=== PATIENT | female | born 1950 | race Caucasian/White ===

== ENCOUNTER → 2018-07-08 08:11 | Outpatient (CLI) | payer OTHER, MEDICARE, SELFPAY | PROVIDERS: Family Provider Family Medicine; PCP Family Medicine; Visit Provider Obstetrics & Gynecology | DX: Z12.31 Encounter for screening mammogram for malignant neoplasm of breast (principal) | CPT/HCPCS: 77063; 77067 ==

== ENCOUNTER → 2018-09-06 13:29 | Outpatient (CLI) | payer MEDICARE, SELFPAY ==
[2018-09-06 15:57] LABS: Absolute Lymphocyte Count 1.56 X10^3/ul (0.83-4.51); Absolute Neutrophil Count 3.4 X10^3/uL (2.0-7.7); Basophil# 0.03 X10^3/uL; Basophil% 0.5 % (0-1); Eosinophil# 0.12 X10^3/uL; Eosinophils% 2.1 % (0-5); Hemoglobin 11.2 g/dl (12.0-15.0); Lymphocyte # 1.56 X10^3/ul (4.0); Lymphocyte % 27.7 % (19-41); Mean Corpuscular Hgb 32.9 pg (27.0-32.0); Mean Corpuscular Volume 102.9 fL (81-99); Mean Platelet Vol. 9.5 fl (6.2-12.0); Monocyte# 0.57 X10^3/uL; Monocyte% 10.1 % (0-10); Neutrophil # 3.35 X10^3/uL (2.7-7.7); Neutrophil % 59.6 % (47-70); Platelet Count 476 K/mm3 (150-450); RBC Distribution Width SD 52.3 fl (35.1-43.9); White Blood Count 5.6 K/mm3 (4.4-11.0)
[2018-09-06 16:05] LABS: POSITIVE COUNT NO; POSITIVE DIFFERENTIAL NO; POSITIVE MORPHOLOGY NO
[2018-09-06 16:28] LABS: ALB/GLOB Ratio 0.9 RATIO (0.9-2.4); AST(SGOT) 22 U/L (15-37); Alanine Aminotransfer ALT/SGPT 26 U/L (13-56); Albumin, Serum 3.8 g/dL (3.2-5.0); Alkaline Phosphatase 84 U/L (45-117); Anion Gap 8 (5-15); BUN 26 mg/dL (7-18); BUN/Creat Ratio 27.2 RATIO (10-20); Calcium,Total 9.4 mg/dL (8.5-10.1); Chloride 104 mmol/L (98-107); Creatinine, Serum 0.96 mg/dL (0.55-1.02); EST Glomerular Filtration Rate 62 mL/min (>60); Est Glom Filt Rate - Afr Amer 75 mL/min (>60); Globulin 4.1 g/dL (2.2-4.2); Glucose 74 mg/dL (74-106); Potassium 3.8 mmol/L (3.5-5.1); Protein, Total 7.9 g/dL (6.4-8.2); Sodium Level 141 mmol/L (136-145)
== END ==
PROVIDERS: Family Provider Family Medicine; PCP Family Medicine; Referring Provider Internal Medicine Rheumatology; Visit Provider Internal Medicine Rheumatology
DX: M06.4 Inflammatory polyarthropathy (principal); M17.0 Bilateral primary osteoarthritis of knee; M21.40 Flat foot [pes planus] (acquired), unspecified foot; F32.89 Other specified depressive episodes; I10 Essential (primary) hypertension; E11.9 Type 2 diabetes mellitus without complications; E03.9 Hypothyroidism, unspecified; E78.5 Hyperlipidemia, unspecified
CPT/HCPCS: 36415; 80053; 85025

== ENCOUNTER → 2018-09-30 09:46 | Outpatient (CLI) | payer MEDICARE, SELFPAY ==
--- NOTE | 2018-09-30 09:50 | RAD_ITS ---
STUDY: X-RAY - RIGHT KNEE REASON FOR EXAM: Female, 68 years old. Knee pain. TECHNIQUE: 2 view(s) of the knee. COMPARISON: None. FINDINGS: Normal visualized distal femur. Normal visualized proximal tibia and fibula. Normal proximal tibiofibular articulation. There is no demonstrated fracture. There is severe degenerative arthrosis of the medial femorotibial compartment with severe joint space narrowing. There is moderate degenerative arthrosis of the lateral femorotibial compartment with moderate joint space narrowing. There is moderate degenerative arthrosis of the patellofemoral articulation. There is a soft tissue prominence in the suprapatellar region suggesting a small volume joint effusion. The soft tissue structures are unremarkable. RAD/Knee 1 or 2 Views IMPRESSION: Limited 2 view study of the knee shows small effusion, degenerative changes, and no acute fracture or dislocation. Electronically Signed: Jono Mao MD at 21:07 EST , Service support ,
--- NOTE | 2018-09-30 10:10 | RAD_ITS ---
STUDY: X-RAY - LEFT KNEE REASON FOR EXAM: Female, 68 years old. Knee pain. TECHNIQUE: 2 view(s) of the knee. COMPARISON: None. FINDINGS: Normal visualized distal femur. Normal visualized proximal tibia and fibula. Normal proximal tibiofibular articulation. There is no demonstrated fracture. Normal medial femorotibial compartment. There is moderate degenerative arthrosis of the lateral femorotibial compartment with moderate joint space narrowing. There is moderate degenerative arthrosis of the patellofemoral articulation. There is a soft tissue prominence in the suprapatellar region suggesting a small volume joint effusion. The soft tissue structures are unremarkable. RAD/Knee 1 or 2 Views IMPRESSION: Limited 2 view study of the knee shows small effusion, degenerative changes, and no acute fracture or dislocation. Electronically Signed: Jono Mao MD at 21:06 EST , Service support ,
== END ==
PROVIDERS: Family Provider Family Medicine; PCP Family Medicine; Referring Provider Anesthesiology Pain Medicine; Visit Provider Anesthesiology Pain Medicine
DX: M17.0 Bilateral primary osteoarthritis of knee (principal)
CPT/HCPCS: 73560

== ENCOUNTER → 2018-12-18 16:23 | Outpatient (CLI) | payer MEDICARE, SELFPAY ==
[2018-12-18 17:58] LABS: Absolute Lymphocyte Count 0.95 X10^3/ul (0.83-4.51); Absolute Neutrophil Count 6.7 X10^3/uL (2.0-7.7); Basophil# 0.02 X10^3/uL; Basophil% 0.2 % (0-1); Eosinophil# 0.01 X10^3/uL; Eosinophils% 0.1 % (0-5); Hematocrit 38.2 % (37-47); Hemoglobin 12.4 g/dl (12.0-15.0); Lymphocyte # 0.95 X10^3/ul (4.0); Lymphocyte % 11.6 % (19-41); Mean Corp Hgb Conc 32.5 g/gl (32-36); Mean Corpuscular Hgb 31.9 pg (27.0-32.0); Mean Corpuscular Volume 98.2 fL (81-99); Mean Platelet Vol. 9.8 fl (6.2-12.0); Monocyte# 0.49 X10^3/uL; Neutrophil % 81.9 % (47-70); Platelet Count 422 K/mm3 (150-450); RBC Distribution Width CV 12.4 % (11.6-14.6); RBC Distribution Width SD 44.1 fl (35.1-43.9); Red Blood Count 3.89 M/mm3 (4.2-5.4); White Blood Count 8.2 K/mm3 (4.4-11.0)
[2018-12-18 18:01] LABS: POSITIVE COUNT NO; POSITIVE DIFFERENTIAL NO; POSITIVE MORPHOLOGY NO
[2018-12-18 18:26] LABS: Ferritin 80 ng/mL (8-252); Free T3 1.8 pg/mL (2.18-3.98); Iron 82 ug/dL (50-170); T4 Free Direct 0.91 ng/dL (0.76-1.46); Thyroid Stim Hormone (TSH) 0.82 uIU/mL (0.358-3.74)
[2018-12-18 18:44] LABS: Vitamin B12 362 pg/mL (211-911)
--- OUTSIDE RECORDS SUMMARY | 2019-02-19 18:48 | XMS RPT_ITS ---
:1950 Author Organization OHIP Support Name Relationship Address Phone JOURDAN VALDEZ Unavailable [address] + [place] [address] R Unavailable Unavailable Unavailable JOURDAN VALDEZ Unavailable [address] Unavailable [place], [place] [phone] JC HUERTAS Unavailable [phone] WORK + NOT GIVEN Unavailable Unavailable Unavailable JOSÉ MIGUELJOURDAN WALKER Unavailable [address] Unavailable [place], [place] [phone] BRODY HUERTASDY Unavailable [phone] WORK + NOT GIVEN Unavailable Unavailable Unavailable JOURDAN VALDEZ Unavailable [address] + [place] [address] R Unavailable Unavailable Unavailable JOSÉ MIGUELJOURDAN Unavailable [address] + [place] [address] R Unavailable Unavailable Unavailable JOURDAN VALDEZ Unavailable [address] + [place] [address] R Unavailable Unavailable Unavailable JOURDAN VALDEZ Unavailable [address] Un[place] [phone] JC HUERTAS Unavailable [phone] WORK + NOT GIVEN Unavailable Unavailable Unavailable JOURDAN VALDEZ Unavailable [address] Un[place] [id number] BRODY HUERTASDY Unavailable [phone] WORK + NOT GIVEN Unavailable Unavailable Unavailable JOURDAN VALDEZ Unavailable [address] Un[place] [phone] BRODY HUERTASDY Unavailable [phone] WORK + NOT GIVEN Unavailable Unavailable Unavailable JOURDAN VALDEZ Unavailable [address] + [place] [address] R Unavailable Unavailable Unavailable JOURDAN VALDEZ Unavailable [address] + [place] [address] R Unavailable Unavailable Unavailable JOURDAN VALDEZ Unavailable [address] Un[place], [place] [phone] JC HUERTAS Unavailable [phone] WORK + NOT GIVEN Unavailable Unavailable Unavailable Care Team Providers Name Role Phone Elif Davenporta Attending Unavailable Malys, Lisseth Primary Care Unavailable Isis Gloria Attending Unavailable Malys, Lisseth Referring Unavailable Malys, Lisseth Primary Care Unavailable Annmarie Leon Attending Unavailable Isis Gloria Attending Unavailable Isis Gloria Referring Unavailable Malys, Lisseth Primary Care Unavailable Lázaro Galvan Attending Unavailable Lázaor Galvan Referring Unavailable Malys, Lisseth Primary Care Unavailable Beverly Hernandez Attending Unavailable Beverly Hernandez Referring Unavailable Malys, Lisseth Primary Care Unavailable LÁZARO GALVAN MD Admitting Unavailable LÁZARO GALVAN MD Attending Unavailable LÁZARO GALVAN MD Primary Care Unavailable LÁZARO GALVAN MD Admitting Unavailable LÁZARO GALVAN MD Attending Unavailable MALYS, LISSETH D.O Referring Unavailable LÁZARO GALVAN MD Primary Care Unavailable ROBERTOYS, LISSETH D.O Consulting Unavailable PROVIDER, UNKNOWN Consulting Unavailable ASTRID HERR DR Admitting Unavailable ASTRID HERR DR Attending Unavailable ASTRID HERR DR Primary Care Unavailable MALYS, LISSETH D.O Consulting Unavailable PROVIDER, UNKNOWN Consulting Unavailable MALYS, LISSETH D.O Admitting Unavailable MALYS, LISSETH D.O Attending Unavailable MALYS, LISSETH D.O Primary Care Unavailable MALYS, LISSETH D.O Consulting Unavailable PROVIDER, UNKNOWN Consulting Unavailable MALYS, LISSETH D.O Admitting Unavailable MALYS, LISSETH D.O Attending Unavailable MALYS, LISSETH D.O Primary Care Unavailable MALYS, LISSETH D.O Consulting Unavailable PROVIDER, UNKNOWN Consulting Unavailable LÁZARO GALVAN MD Admitting Unavailable LÁZARO GALVAN MD Attending Unavailable LÁZARO GALVAN MD Primary Care Unavailable MALYS, LISSETH D.O Consulting Unavailable PROVIDER, UNKNOWN Consulting Unavailable PROBLEMS PROBLEMS DATE TYPE CONDITION / CODE ATTENDING STATUS SOURCE 09/06/2018 Unknown 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 / [facility] M06.4(ICD-10) Hospital Repository 09/06/2018 Unknown M17.0 - Bilateral Vellanki, 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 [facility]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 / M17.0(ICD-10) Repository 09/06/2018 Unknown M15.9 - Vellanki, 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, [facility] unspecified / Hospital M15.9(ICD-10) Repository 09/06/2018 Unknown M21.40 - Flat foot Vellanki, Active [facility] [pes planus] [facility] (acquired), Hospital unspecified foot / Repository M21.40(ICD-10) 09/06/2018 Unknown F32.89 - Other Vellanki, Active [facility] specified depressive [facility] episodes / Hospital F32.89(ICD-10) Repository 09/06/2018 Unknown I10 - Essential Vellanki, Active [facility] (primary) [facility] hypertension / Hospital I10(ICD-10) Repository 09/06/2018 Unknown E11.9 - Type 2 Vellanki, Active [facility] diabetes mellitus [facility] without Hospital complications / Repository E11.9(ICD-10) 09/06/2018 Unknown E03.9 - Vellanki, Active [facility] Hypothyroidism, [facility] unspecified / Hospital E03.9(ICD-10) Repository 09/06/2018 Unknown E78.5 - Vellanki, Active [facility] Hyperlipidemia, [facility] unspecified / Hospital E78.5(ICD-10) Repository 08/19/2018 Unknown Z12.31 - Encounter Faizan, Active [facility] for screening [facility] mammogram for Hospital malignant neoplasm Repository of breast / Z12.31(ICD-10) 05/27/2018 Secondary Type 2 diabetes MALYS, LISSETH Active [facility] Diagnosis mellitus without [facility] complications / Hospital E119(ICD-10) Repository 05/27/2018 Secondary Hyperlipidemia, MALYS, LISSETH Active [facility] Diagnosis unspecified / [facility] E785(ICD-10) Hospital Repository 05/27/2018 Admitting Hypothyroidism, MALYS, LISSETH Active [facility] Diagnosis unspecified / [facility] E039(ICD-10) Hospital Repository 05/27/2018 Principle Hypothyroidism, MALYS, LISSETH Active [facility] Diagnosis unspecified / [facility] E039(ICD-10) Hospital Repository 05/27/2018 Secondary Essential (primary) LISSETH DAVENPORT Active [facility] Diagnosis hypertension / D.O [facility] I10(ICD-10) Hospital Repository 04/15/2018 Admitting Bilateral primary ASTRID HERR Active [facility] Diagnosis osteoarthritis of Jeannine knee / M170(ICD-10) Hospital Repository 04/15/2018 Principle Bilateral primary ASTRID HERR Active [facility] Diagnosis osteoarthritis of DR Paez knee / M170(ICD-10) Hospital Repository 03/20/2018 Admitting Essential (primary) VELLANKI, Active [facility] Diagnosis hypertension / LÁZARO [facility] I10(ICD-10) Hospital Repository 03/20/2018 Principle Essential (primary) VELLANKI, Active [facility] Diagnosis hypertension / LÁZARO [facility] I10(ICD-10) Hospital Repository 03/20/2018 Secondary Hypothyroidism, VELLANKI, Active [facility] Diagnosis unspecified / LÁZARO MD [facility] E039(ICD-10) Hospital Repository 12/26/2017 Admitting Inflammatory VELLANKI, Active [facility] Diagnosis polyarthropathy / LÁZARO [facility] M064(ICD-10) Hospital Repository 12/26/2017 Principle Inflammatory VELLANKI, Active [facility] Diagnosis polyarthropathy / LÁZARO [facility] M064(ICD-10) Hospital Repository 12/26/2017 Secondary Bilateral primary VELLANKI, Active [facility] Diagnosis osteoarthritis of LÁZARO NICHOLS [facility] knee / M170(ICD-10) Hospital Repository PROCEDURES PROCEDURES No Procedure Records FoundRESULTS RESULTS CBC W/DIFF, AUTOMATED Collected: 12/18/2018 Status: F Source: RAMY 4:26 PM [facility] HOSPITAL REPOSITORY TYPE CODE TESTS RESULT OUT OF RANGE REFERENCE UNITS LAB L100.1000 4.4-11.0 K/mm3 Normal WBC 8.2 LAB L100.1200 4.2-5.4 M/mm3 Low RBC 3.89 LAB L100.1300 12.0-15.0 g/dl Normal HGB 12.4 LAB L100.1400 37-47 % Normal HCT 38.2 LAB L100.1500 81-99 fL Normal MCV 98.2 LAB L100.1600 27.0-32.0 pg Normal MCH 31.9 LAB L100.1700 32-36 g/gl Normal MCHC 32.5 LAB L100.1810 11.6-14.6 % Normal RDW CV 12.4 LAB L100.1820 35.1-43.9 fl High RDW SD 44.1 LAB L100.1900 150-450 K/mm3 Normal PLT 422 LAB L100.2000 6.2-12.0 fl Normal MPV 9.8 LAB L100.2100 47-70 % High NEUT% 81.9 LAB L100.2200 19-41 % Low LY% 11.6 LAB L100.2300 0-10 % Normal MONO% 6.0 LAB L100.2400 0-5 % Normal EO% 0.1 LAB L100.2500 0-1 % Normal BASO% 0.2 LAB L100.2550 0.0-0.9 % Normal IM GRAN % 0.200 Result Comment: IG% - Immature Granulocytes (promyelocytes, myelocytes and metamyelocytes) > 1% indicates that a LEFT SHIFT is Present. LAB L100.2620 2.0-7.7 X10 3/uL Normal Absolute Neut 6.7 LAB L100.2720 0.83-4.51 X10 3/ul Normal Absolute Lymph 0.95 Performed By: #### L100.0100 #### [facility] [address] [place], [place], [id number] FREE T3 Collected: 12/18/2018 Status: F Source: [place] 4:[address] [facility] REPOSITORY TYPE CODE TESTS RESULT OUT OF RANGE REFERENCE UNITS LAB L501.15482 2.18-3.98 pg/mL Low FREE T3 1.8 Performed By: #### L501.72639, L501.9520, L503.6150, L503.6550, L506.0400 #### [facility] [address] [facility] [place], [place], [address] THYROID STIM HORMONE Collected: 12/18/2018 Status: F Source: [place]IL[place] (TSH) 4:[address] [facility] REPOSITORY TYPE CODE TESTS RESULT OUT OF RANGE REFERENCE UNITS LAB L501.9520 0.358-3.74 uIU/mL Normal TSH 0.82 Performed By: #### L501.59230, L501.9520, L503.6150, L503.6550, L506.0400 #### [facility] [address] [place], [address] IRON Collected: 12/18/2018 Status: F Source: [place] 4:[address] [facility] REPOSITORY TYPE CODE TESTS RESULT OUT OF RANGE REFERENCE UNITS LAB L503.6150 50-170 ug/dL Normal IRON 82 Performed By: #### L501.89191, L501.9520, L503.6150, L503.6550, L506.0400 #### [facility] [address] [place], [address] FERRITIN Collected: 12/18/2018 Status: F Source: [place] 4:[address] [facility] REPOSITORY TYPE CODE TESTS RESULT OUT OF RANGE REFERENCE UNITS LAB L503.6550 8-252 ng/mL Normal FERRITIN 80 Performed By: #### L501.91698, L501.9520, L503.6150, L503.6550, L506.0400 #### [facility] [place], [address] T4 FREE DIRECT Collected: 12/18/2018 Status: F Source: [place] 4:[address] [facility] REPOSITORY TYPE CODE TESTS RESULT OUT OF RANGE REFERENCE UNITS LAB L506.0400 0.76-1.46 ng/dL Normal T4 FREE 0.91 DIRECT Performed By: #### L501.40875, L501.9520, L503.6150, L503.6550, L506.0400 #### [facility] [place], [address] VITAMIN B12 Collected: 12/18/2018 Status: F Source: [place] 4:[address] [facility] REPOSITORY TYPE CODE TESTS RESULT OUT OF RANGE REFERENCE UNITS LAB L503.0105 211-911 pg/mL Normal Vitamin B12 362 Performed By: #### L503.0105 #### [facility] [address] [place], [address] CBC Collected: 12/07/2018 Status: F Source: DARRYL UNDERWOOD 11:00 AM [facility] REPOSITORY TYPE CODE TESTS RESULT OUT OF RANGE REFERENCE UNITS LAB CBC(LOINC) CBC Result Comment: CBC-COMPLETE BLOOD COUNT LAB WBC(LOINC) 4.5 - 10.8 x 10EE3/UL WBC 5.5 LAB RBC(LOINC) 4.10 - x 10EE6/UL 5.30 RBC Low 3.93 LAB HEMOGLOBIN(LOINC) 12.0 - g/dl 16.0 HEMOGLOBIN 13.0 LAB HEMATOCRIT(LOINC) 34.0 - % 46.0 HEMATOCRIT 38.3 LAB MCV(LOINC) 80 - 99 fl MCV 97 LAB MCH(LOINC) 27 - 33 pg MCH 33 LAB MCHC(LOINC) 32 - 36 X10 3 MCHC 34 LAB RDW/CV(LOINC) 12.0 - % 15.6 RDW/CV 12.4 LAB PLATELET(LOINC) 150 - 450 x10EE3/UL PLATELET 382 LAB MPV(LOINC) 6.6 - 10.5 fl MPV 8.6 Result Comment: AUTOMATED DIFFERENTIAL LAB NEUT %(LOINC) 46.0 - 76.0 % NEUT % 52.2 LAB LYMPH %(LOINC) 20.0 - 45.0 % LYMPH % 31.3 LAB MONOS %(LOINC) 0.0 - 10.0 % MONOS % High 11.4 LAB EO %(LOINC) 0.0 - 7.0 % EO % 4.2 LAB BASO %(LOINC) 0.0 - 2.0 % BASO % 0.9 LAB Lymph #(LOINC) 0.80 - 2.80 x10EE3/U L Lymph # 1.70 LAB Neut #(LOINC) 1.50 - 7.10 x10EE3/U L Neut # 2.90 LAB Dixon #(LOINC) 0.20 - 1.00 x10EE3/U L Dixon # 0.60 LAB EO #(LOINC) 0.00 - 0.50 x10EE3/U L EO # 0.20 LAB Baso #(LOINC) 0.00 - 0.10 x10EE3/U L Baso # 0.00 LAB MANUAL DIFF(LOINC) MANUAL DIFF N/A LAB MORPHOLOGY(LOINC ) MORPHOLOGY N/A Result Comment: {CD] Performed By: #### [id number] #### [facility],[address] [place] [address] CMP WITH EGFR Collected: 12/07/2018 Status: F Source: [facility] 11:00 AM [facility] REPOSITORY TYPE CODE TESTS RESULT OUT OF RANGE REFERENCE UNITS LAB CMP with eGFR(LOINC) CMP with eGFR Result Comment: COMPREHENSIVE METABOLIC PANEL LAB SODIUM(LOINC) 136 - 145 mmol/l SODIUM 141 LAB POTASSIUM(LOINC) 3.5 - 5.1 mmol/L POTASSIUM 3.8 LAB CHLORIDE(LOINC) 98 - 107 mmol/L CHLORIDE 102 LAB CO2(LOINC) 21.0 - mmol/L 31.0 CO2 27.8 LAB GLUCOSE(LOINC) 74 - 106 mg/dl GLUCOSE 85 LAB BUN(LOINC) 6 - 20 mg/dl BUN High 24 LAB CREATININE(LOINC) 0.6 - 1.2 mg/dl CREATININE 0.9 LAB AST/SGOT(LOINC) 13 - 39 U/L AST/SGOT 19 LAB ALK PHOS(LOINC) 38 - 126 U/L ALK PHOS 63 LAB CALCIUM(LOINC) 8.6 - mg/dl 10.2 CALCIUM 10.2 LAB TOTAL 6.4 - 8.3 g/dl PROTEIN(LOINC) TOTAL PROTEIN 7.7 LAB ALBUMIN(LOINC) 3.4 - 4.8 g/dL ALBUMIN 4.5 LAB GLOBULIN(LOINC) 1.5 - 3.8 G/DL GLOBULIN 3.2 LAB A/G RATIO(LOINC) 0.9 - 1.6 A/G RATIO 1.4 LAB TOTAL BILI(LOINC) 0.0 - 1.5 mg/dl TOTAL BILI 0.4 LAB B/C RATIO(LOINC) 0 - 30 ratio B/C RATIO 27 LAB ALT/SGPT(LOINC) 8 - 35 U/L ALT/SGPT 13 LAB ANION GAP(LOINC) 10 - 20 mmol/L ANION GAP 15 LAB AGE(LOINC) years AGE 68 LAB eGFR(LOINC) 60 - 999 ML/MINUTE eGFR >60 LAB eGFR(AA)(LOINC) 60 - 999 ML/MINUTE eGFR(AA) >60 Result Comment: ACCORDING TO THE NATIONAL KIDNEY DISEASE EDUCATION PROGRAM(NKDE), A NORMAL eGFR IS A VALUE GREATER THAN OR EQUAL TO 60 ML/MIN/1.73 SQ METERS. CHRONIC KIDNEY DISEASE: <60mL/MIN/1.73 SQ METERS KIDNEY FAILURE: <15mL/MIN/1.73 SQ METERS THIS TEST SHOULD ONLY BE USED FOR PATIENTS 18 YEARS OF AGE AND OLDER. Performed By: #### [id number] #### [place] [id number] MICROALBUMIN RANDOM Collected: 11/07/2018 Status: F Source: [facility] URINE W/CREATININE 8:45 [facility] REPOSITORY TYPE CODE TESTS RESULT OUT OF REFERENCE UNITS RANGE LAB MICROALBUMIN 0.1 - 11.6 mg/dL UR(LOINC) MICROALBUMIN UR 1.1 LAB CREATININE mg/dl UR(LOINC) CREATININE UR 107.4 Result Comment: Microalbumin/Creat Ratio LAB UACR(LOINC) mg/g UACR 10 Performed By: #### [id number] #### [place] [address] LIPID PROFILE Collected: 11/07/2018 Status: F Source: [facility] 8:45 [facility] REPOSITORY TYPE CODE TESTS RESULT OUT OF REFERENCE UNITS RANGE LAB LIPID PROFILE(LOIN C) LIPID PROFILE Result Comment: LIPID PROFILE LAB TRIGLYCERIDE(LOINC) 0 - 150 mg/dl TRIGLYCERIDE 35 LAB CHOLESTEROL(LOINC) 0 - 200 mg/dl CHOLESTEROL 176 LAB HDL(LOINC) 40 - 60 mg/dl HDL High 68 LAB CHOL/HDL(LOINC) 0.0 - 5.0 CHOL/HDL 2.6 LAB LDL(LOINC) 0 - 129 mg/dl LDL 101 Performed By: #### [id number] #### [place] [id number] CMP WITH EGFR Collected: 11/07/2018 Status: F Source: [facility] 8:45 [facility] REPOSITORY TYPE CODE TESTS RESULT OUT OF RANGE REFERENCE UNITS LAB CMP with eGFR(LOINC) CMP with eGFR Result Comment: COMPREHENSIVE METABOLIC PANEL LAB SODIUM(LOINC) 136 - 145 mmol/l SODIUM 141 LAB POTASSIUM(LOINC) 3.5 - 5.1 mmol/L POTASSIUM 3.8 LAB CHLORIDE(LOINC) 98 - 107 mmol/L CHLORIDE 103 LAB CO2(LOINC) 21.0 - mmol/L 31.0 CO2 30.9 LAB GLUCOSE(LOINC) 74 - 106 mg/dl GLUCOSE 76 LAB BUN(LOINC) 6 - 20 mg/dl BUN High 26 LAB CREATININE(LOINC) 0.6 - 1.2 mg/dl CREATININE 0.9 LAB AST/SGOT(LOINC) 13 - 39 U/L AST/SGOT 20 LAB ALK PHOS(LOINC) 38 - 126 U/L ALK PHOS 63 LAB CALCIUM(LOINC) 8.6 - mg/dl 10.2 CALCIUM 9.5 LAB TOTAL 6.4 - 8.3 g/dl PROTEIN(LOINC) TOTAL PROTEIN 7.4 LAB ALBUMIN(LOINC) 3.4 - 4.8 g/dL ALBUMIN 4.4 LAB GLOBULIN(LOINC) 1.5 - 3.8 G/DL GLOBULIN 3.0 LAB A/G RATIO(LOINC) 0.9 - 1.6 A/G RATIO 1.5 LAB TOTAL BILI(LOINC) 0.0 - 1.5 mg/dl TOTAL BILI 0.4 LAB B/C RATIO(LOINC) 0 - 30 ratio B/C RATIO 29 LAB ALT/SGPT(LOINC) 8 - 35 U/L ALT/SGPT 13 LAB ANION GAP(LOINC) 10 - 20 mmol/L ANION GAP 11 LAB AGE(LOINC) years AGE 68 LAB eGFR(LOINC) 60 - 999 ML/MINUTE eGFR >60 LAB eGFR(AA)(LOINC) 60 - 999 ML/MINUTE eGFR(AA) >60 Result Comment: ACCORDING TO THE NATIONAL KIDNEY DISEASE EDUCATION PROGRAM(NKDE), A NORMAL eGFR IS A VALUE GREATER THAN OR EQUAL TO 60 ML/MIN/1.73 SQ METERS. CHRONIC KIDNEY DISEASE: <60mL/MIN/1.73 SQ METERS KIDNEY FAILURE: <15mL/MIN/1.73 SQ METERS THIS TEST SHOULD ONLY BE USED FOR PATIENTS 18 YEARS OF AGE AND OLDER. Performed By: #### [id number] #### [facility],[address] [place] [address] HGB A1C Collected: 11/07/2018 Status: F [facility] REPOSITORY TYPE CODE TESTS RESULT OUT OF RANGE REFERENCE UNITS LAB HGB 4.4 - 6.4 % A1C(LOINC) HGB A1C 5.6 Result Comment: {HB] {A1] Performed By: #### [id number] #### [facility],[address] [facility] [address] KNEE 1 OR 2 VIEWS Observed: 09/30/2018 Status: F Source: [place] 9:[address] [facility] REPOSITORY [facility] Imaging Services [address] [place] [address] Knee 1 or 2 Views MR#: [id number] Acct: [id number] Name: KEMI VALDEZ Rep #: [id number] : 1950 F 68 From: Jono Mao MD PCP: Lisseth Davenport DO Status: REG CLI Study: Knee 1 or 2 Views Date of Exam: 09/30/18 Exam# [id number] Ordering Dr: Beverly Hernandez MD STUDY: X-RAY - LEFT KNEE REASON FOR EXAM: Female, 68 years old. Knee pain. TECHNIQUE: 2 view(s) of the knee. COMPARISON: None. FINDINGS: Normal visualized distal femur. Normal visualized proximal tibia and fibula. Normal proximal tibiofibular articulation. There is no demonstrated fracture. Normal medial femorotibial compartment. There is moderate degenerative arthrosis of the lateral femorotibial compartment with moderate joint space narrowing. There is moderate degenerative arthrosis of the patellofemoral articulation. There is a soft tissue prominence in the suprapatellar region suggesting a small volume joint effusion. The soft tissue structures are unremarkable. RAD/Knee 1 or 2 Views IMPRESSION: Limited 2 view study of the knee shows small effusion, degenerative changes, and no acute fracture or dislocation. Electronically Signed: Jono Mao MD at 21:06 EST , Service support , CC: Beverly Hernandez MD; Lisseth Davenport DO Senior Instructor: Signed KNEE 1 OR 2 VIEWS Observed: 09/30/2018 Status: F Source: RAMY 9:[address] [facility] REPOSITORY [facility] Imaging Services [address] [place] [address] Knee 1 or 2 Views MR#: [id number] Acct: [id number] Name: KEMI VALDEZ Rep #: [id number] : 1950 F 68 From: Jono Mao MD PCP: Lisseth Davenport DO Status: REG CLI Study: Knee 1 or 2 Views Date of Exam: 09/30/18 Exam# [id number] Ordering Dr: Beverly Hernandez MD STUDY: X-RAY - RIGHT KNEE REASON FOR EXAM: Female, 68 years old. Knee pain. TECHNIQUE: 2 view(s) of the knee. COMPARISON: None. FINDINGS: Normal visualized distal femur. Normal visualized proximal tibia and fibula. Normal proximal tibiofibular articulation. There is no demonstrated fracture. There is severe degenerative arthrosis of the medial femorotibial compartment with severe joint space narrowing. There is moderate degenerative arthrosis of the lateral femorotibial compartment with moderate joint space narrowing. There is moderate degenerative arthrosis of the patellofemoral articulation. There is a soft tissue prominence in the suprapatellar region suggesting a small volume joint effusion. The soft tissue structures are unremarkable. RAD/Knee 1 or 2 Views IMPRESSION: Limited 2 view study of the knee shows small effusion, degenerative changes, and no acute fracture or dislocation. Electronically Signed: Jono Mao MD at 21:07 EST , Service support , CC: Beverly Hernandez MD; Lisseth Davenport DO Senior Instructor: Signed CBC W/DIFF, AUTOMATED Collected: 09/06/2018 Status: F Source: RAMY 1:[address] [facility] REPOSITORY TYPE CODE TESTS RESULT OUT OF RANGE REFERENCE UNITS LAB L100.1000 4.4-11.0 K/mm3 Normal WBC 5.6 LAB L100.1200 4.2-5.4 M/mm3 Low RBC 3.40 LAB L100.1300 12.0-15.0 g/dl Low HGB 11.2 LAB L100.1400 37-47 % Low HCT 35.0 LAB L100.1500 81-99 fL High MCV 102.9 LAB L100.1600 27.0-32.0 pg High MCH 32.9 LAB L100.1700 32-36 g/gl Normal MCHC 32.0 LAB L100.1810 11.6-14.6 % Normal RDW CV 14.0 LAB L100.1820 35.1-43.9 fl High RDW SD 52.3 LAB L100.1900 150-450 K/mm3 High PLT 476 LAB L100.2000 6.2-12.0 fl Normal MPV 9.5 LAB L100.2100 47-70 % Normal NEUT% 59.6 LAB L100.2200 19-41 % Normal LY% 27.7 LAB L100.2300 0-10 % High MONO% 10.1 LAB L100.2400 0-5 % Normal EO% 2.1 LAB L100.2500 0-1 % Normal BASO% 0.5 LAB L100.2550 0.0-0.9 % Normal IM GRAN % 0.000 Result Comment: IG% - Immature Granulocytes (promyelocytes, myelocytes and metamyelocytes) > 1% indicates that a LEFT SHIFT is Present. LAB L100.2620 2.0-7.7 X10 3/uL Normal Absolute Neut 3.4 LAB L100.2720 0.83-4.51 X10 3/ul Normal Absolute Lymph 1.56 Performed By: #### L100.0100 #### [facility] [address] [facility] [place], [place], [id number] COMPREHENSIVE METABOLIC Collected: 09/06/2018 Status: F Source: [facility] 1:[address] [facility] REPOSITORY TYPE CODE TESTS RESULT OUT OF RANGE REFERENCE UNITS LAB L501.0100 74-106 mg/dL Normal GLU 74 Result Comment: Please note revised GLUCOSE reference range effective 2017. LAB L501.1000 7-18 mg/dL High BUN 26 LAB L501.1100 0.55-1.02 mg/dL Normal CREAT,SERUM 0.96 Result Comment: The validity of the calculated GFR AND GFRAA in patients over 70 years has not been determined. Clinical correlation is essential. LAB L501.1110 >60 mL/min Normal EST GFR 62 Result Comment: Non- GFR Calc LAB L501.1115 >60 mL/min Normal EST GFR - AA 75 Result Comment: GFR Calc LAB L501.1300 10-20 RATIO High BUN/CRE 27.2 LAB L501.1500 6.4-8.2 g/dL T Normal PROT 7.9 LAB L501.1800 3.2-5.0 g/dL Normal ALB 3.8 LAB L501.1950 2.2-4.2 g/dL Normal GLOB 4.1 LAB L501.2000 0.9-2.4 RATIO Normal A/G 0.9 LAB L501.2200 8.5-10.1 mg/dL CA Normal 9.4 LAB L501.4100 15-37 U/L Normal AST 22 LAB L501.4305 45-117 U/L Normal ALK P 84 LAB L501.4405 13-56 U/L Normal ALT 26 LAB L501.4600 0.20-1.00 mg/dL T Normal BILI 0.30 LAB L501.5300 136-145 mmol/L NA Normal 141 LAB L501.5600 3.5-5.1 mmol/L K Normal 3.8 LAB L501.5900 98-107 mmol/L CL Normal 104 LAB L501.6100 21.0-32.0 mmol/L Normal CO2 29.0 LAB L501.6200 5-15 Normal GAP 8 Performed By: #### L500.4050 #### [facility] [address] [facility] [place], [address] SCREENING MAMM (CAD), Observed: 07/08/2018 Status: F Source: [place] [facility] 8:[address] [facility] REPOSITORY [facility] Imaging Services [address] [place] [address] SCREENING MAMM (CAD), BILAT MR#: [id number] Acct: [id number] Name: KEMI VALDEZ Rep #: [id number] : 1950 F 68 From: Hans Miranda MD PCP: Lisseth Davenport DO Status: REG CLI Study: SCREENING MAMM (CAD), BILAT Date of Exam: 07/08/18 Exam# [id number] Ordering Dr: Isis Gloria MD MAMMOGRAPHY - BILATERAL SCREENING REASON FOR EXAM: Female, 68 years old. Routine annual screening examination. PERTINENT HISTORY: Non-contributory. TECHNIQUE: Digital bilateral breast michael (3D mammographic acquisition) in the CC and MLO projections. 2-D mediolateral oblique (MLO) and craniocaudad (CC) views of both breasts were obtained. CAD: Full Field Digital Mammography with Computer Added Detection was performed. COMPARISON: Comparison is made with prior examination dated October 20, 2016. FINDINGS: Breast Composition: The breasts are almost entirely fatty. There are no dominant masses or suspicious calcifications. Stable small benign-appearing bilateral axillary lymph nodes. No other significant abnormalities are identified. There has been no significant change since the prior study. BI/SCREENING MAMM (CAD), BILAT IMPRESSION: Stable bilateral screening mammogram. Yearly follow-up mammogram recommended. (A) ASSESSMENT CATEGORY: BIRADS Category 2: Benign. A letter regarding these results will be sent to the patient by the facility within 30 days. Approximately 10% of breast cancers are not detected by mammography. A normal mammogram should not delay biopsy of a clinically suspicious abnormality. [id number] Electronically Signed: Hans Miranda MD at 15:51 EDT Tel [phone], Service support , CC: Lisseth Davenport DO; Isis Gloria MD Senior Instructor: Signed CBC Collected: 05/27/2018 Status: F Source: [facility]ER[facility] 2:00 PM [facility] REPOSITORY TYPE CODE TESTS RESULT OUT OF RANGE REFERENCE UNITS LAB CBC(LOINC) CBC Result Comment: CBC-COMPLETE BLOOD COUNT LAB WBC(LOINC) 4.5 - 10.8 x 10EE3/UL WBC 7.1 LAB RBC(LOINC) 4.10 - x 10EE6/UL 5.30 RBC Low 3.43 LAB HEMOGLOBIN(LOINC) 12.0 - g/dl 16.0 Low HEMOGLOBIN 11.4 LAB HEMATOCRIT(LOINC) 34.0 - % 46.0 Low HEMATOCRIT 33.2 LAB MCV(LOINC) 80 - 99 fl MCV 97 LAB MCH(LOINC) 27 - 33 pg MCH 33 LAB MCHC(LOINC) 32 - 36 X10 3 MCHC 34 LAB RDW/CV(LOINC) 12.0 - % 15.6 RDW/CV 14.4 LAB PLATELET(LOINC) 150 - 450 x10EE3/UL PLATELET 401 LAB MPV(LOINC) 6.6 - 10.5 fl MPV 8.7 Result Comment: AUTOMATED DIFFERENTIAL LAB NEUT %(LOINC) 46.0 - 76.0 % NEUT % 61.7 LAB LYMPH %(LOINC) 20.0 - 45.0 % LYMPH % 25.7 LAB MONOS %(LOINC) 0.0 - 10.0 % MONOS % High 10.5 LAB EO %(LOINC) 0.0 - 7.0 % EO % 1.6 LAB BASO %(LOINC) 0.0 - 2.0 % BASO % 0.5 LAB Lymph #(LOINC) 0.80 - 2.80 x10EE3/U L Lymph # 1.80 LAB Neut #(LOINC) 1.50 - 7.10 x10EE3/U L Neut # 4.40 LAB Dixon #(LOINC) 0.20 - 1.00 x10EE3/U L Dixon # 0.70 LAB EO #(LOINC) 0.00 - 0.50 x10EE3/U L EO # 0.10 LAB Baso #(LOINC) 0.00 - 0.10 x10EE3/U L Baso # 0.00 LAB MANUAL DIFF(LOINC) MANUAL DIFF N/A LAB MORPHOLOGY(LOINC ) MORPHOLOGY N/A Result Comment: {CD] Performed By: #### [id number] #### [facility],[address] [place] [id number] CMP WITH EGFR Collected: 05/27/2018 Status: F Source: [facility] 2:00 PM [facility] REPOSITORY TYPE CODE TESTS RESULT OUT OF RANGE REFERENCE UNITS LAB CMP with eGFR(LOINC) CMP with eGFR Result Comment: COMPREHENSIVE METABOLIC PANEL LAB SODIUM(LOINC) 136 - 145 mmol/l SODIUM 139 LAB POTASSIUM(LOINC) 3.5 - 5.1 mmol/L POTASSIUM 3.8 LAB CHLORIDE(LOINC) 98 - 107 mmol/L CHLORIDE 102 LAB CO2(LOINC) 21.0 - mmol/L 31.0 CO2 27.4 LAB GLUCOSE(LOINC) 74 - 106 mg/dl GLUCOSE High 122 LAB BUN(LOINC) 6 - 20 mg/dl BUN High 31 LAB CREATININE(LOINC) 0.6 - 1.2 mg/dl CREATININE 1.0 LAB AST/SGOT(LOINC) 13 - 39 U/L AST/SGOT 17 LAB ALK PHOS(LOINC) 38 - 126 U/L ALK PHOS 55 LAB CALCIUM(LOINC) 8.6 - mg/dl 10.2 CALCIUM 9.3 LAB TOTAL 6.4 - 8.3 g/dl PROTEIN(LOINC) TOTAL PROTEIN 6.5 LAB ALBUMIN(LOINC) 3.4 - 4.8 g/dL ALBUMIN 4.2 LAB GLOBULIN(LOINC) 1.5 - 3.8 G/DL GLOBULIN 2.3 LAB A/G RATIO(LOINC) 0.9 - 1.6 A/G High RATIO 1.8 LAB TOTAL BILI(LOINC) 0.0 - 1.5 mg/dl TOTAL BILI 0.3 LAB B/C RATIO(LOINC) 0 - 30 ratio B/C High RATIO 31 LAB ALT/SGPT(LOINC) 8 - 35 U/L ALT/SGPT 14 LAB ANION GAP(LOINC) 10 - 20 mmol/L ANION GAP 13 LAB AGE(LOINC) years AGE 68 LAB eGFR(LOINC) 60 - 999 ML/MINUTE eGFR Low 55 LAB eGFR(AA)(LOINC) 60 - 999 ML/MINUTE eGFR(AA) >60 Result Comment: ACCORDING TO THE NATIONAL KIDNEY DISEASE EDUCATION PROGRAM(NKDE), A NORMAL eGFR IS A VALUE GREATER THAN OR EQUAL TO 60 ML/MIN/1.73 SQ METERS. CHRONIC KIDNEY DISEASE: <60mL/MIN/1.73 SQ METERS KIDNEY FAILURE: <15mL/MIN/1.73 SQ METERS THIS TEST SHOULD ONLY BE USED FOR PATIENTS 18 YEARS OF AGE AND OLDER. Performed By: #### [id number] #### [place] [id number] T4-FREE (FREE Collected: 05/27/2018 Status: F Source: [facility] THYROXINE) 2:00 PM [facility] REPOSITORY TYPE CODE TESTS RESULT OUT OF RANGE REFERENCE UNITS LAB T4 0.61 - 1.12 ng/dl FREE(LOINC) T4 FREE 0.80 Result Comment: *SPECIMENS FROM PATIENTS WHO ARE UNDERGOING BIOTIN THERAPY AND/OR INGESTING BIOTIN SUPPLEMENTS MAY HAVE FALSE HIGH RESULTS. Performed By: #### [id number] #### [place] [id number] TSH Collected: 05/27/2018 Status: F Source: [facility] 2:00 PM [facility] REPOSITORY TYPE CODE TESTS RESULT OUT OF RANGE REFERENCE UNITS LAB TSH(LOINC) 0.34 - 5.60 uIU/ml TSH 1.38 Performed By: #### [id number] #### [address] [address] CBC Collected: 03/20/2018 Status: F Source: [facility] 9:11 AM [facility] REPOSITORY TYPE CODE TESTS RESULT OUT OF RANGE REFERENCE UNITS LAB CBC(LOINC) CBC Result Comment: CBC-COMPLETE BLOOD COUNT LAB WBC(LOINC) 4.5 - 10.8 x 10EE3/UL WBC 6.6 LAB RBC(LOINC) 4.10 - x 10EE6/UL 5.30 RBC Low 4.04 LAB HEMOGLOBIN(LOINC) 12.0 - g/dl 16.0 HEMOGLOBIN 12.8 LAB HEMATOCRIT(LOINC) 34.0 - % 46.0 HEMATOCRIT 37.9 LAB MCV(LOINC) 80 - 99 fl MCV 94 LAB MCH(LOINC) 27 - 33 pg MCH 32 LAB MCHC(LOINC) 32 - 36 X10 3 MCHC 34 LAB RDW/CV(LOINC) 12.0 - % 15.6 RDW/CV 13.2 LAB PLATELET(LOINC) 150 - 450 x10EE3/UL PLATELET 397 LAB MPV(LOINC) 6.6 - 10.5 fl MPV 8.2 Result Comment: AUTOMATED DIFFERENTIAL LAB NEUT %(LOINC) 46.0 - 76.0 % NEUT % 52.5 LAB LYMPH %(LOINC) 20.0 - 45.0 % LYMPH % 30.4 LAB MONOS %(LOINC) 0.0 - 10.0 % MONOS % High 13.3 LAB EO %(LOINC) 0.0 - 7.0 % EO % 2.7 LAB BASO %(LOINC) 0.0 - 2.0 % BASO % 1.1 LAB Lymph #(LOINC) 0.80 - 2.80 x10EE3/U L Lymph # 2.00 LAB Neut #(LOINC) 1.50 - 7.10 x10EE3/U L Neut # 3.50 LAB Dixon #(LOINC) 0.20 - 1.00 x10EE3/U L Dixon # 0.90 LAB EO #(LOINC) 0.00 - 0.50 x10EE3/U L EO # 0.20 LAB Baso #(LOINC) 0.00 - 0.10 x10EE3/U L Baso # 0.10 LAB MANUAL DIFF(LOINC) MANUAL DIFF N/A LAB MORPHOLOGY(INC ) MORPHOLOGY N/A Result Comment: {CD] Performed By: #### [id number] #### [facility],[address] [place] [address] CMP WITH EGFR Collected: 03/20/2018 Status: F Source: [facility] 9:11 AM [facility] REPOSITORY TYPE CODE TESTS RESULT OUT OF RANGE REFERENCE UNITS LAB CMP with eGFR(LOINC) CMP with eGFR Result Comment: COMPREHENSIVE METABOLIC PANEL LAB SODIUM(LOINC) 136 - 145 mmol/l SODIUM 140 LAB POTASSIUM(LOINC) 3.5 - 5.1 mmol/L POTASSIUM 3.9 LAB CHLORIDE(LOINC) 98 - 107 mmol/L CHLORIDE 101 LAB CO2(LOINC) 21.0 - mmol/L 31.0 CO2 29.6 LAB GLUCOSE(LOINC) 74 - 106 mg/dl GLUCOSE 98 LAB BUN(LOINC) 6 - 20 mg/dl BUN High 27 LAB CREATININE(LOINC) 0.6 - 1.2 mg/dl CREATININE 0.9 LAB AST/SGOT(LOINC) 13 - 39 U/L AST/SGOT 17 LAB ALK PHOS(LOINC) 38 - 126 U/L ALK PHOS 63 LAB CALCIUM(LOINC) 8.6 - mg/dl 10.2 CALCIUM 9.9 LAB TOTAL 6.4 - 8.3 g/dl PROTEIN(LOINC) TOTAL PROTEIN 7.3 LAB ALBUMIN(LOINC) 3.4 - 4.8 g/dL ALBUMIN 4.4 LAB GLOBULIN(LOINC) 1.5 - 3.8 G/DL GLOBULIN 2.9 LAB A/G RATIO(LOINC) 0.9 - 1.6 A/G RATIO 1.5 LAB TOTAL BILI(LOINC) 0.0 - 1.5 mg/dl TOTAL BILI 0.4 LAB B/C RATIO(LOINC) 0 - 30 ratio B/C RATIO 30 LAB ALT/SGPT(LOINC) 8 - 35 U/L ALT/SGPT 13 LAB ANION GAP(LOINC) 10 - 20 mmol/L ANION GAP 13 LAB AGE(LOINC) years AGE 67 LAB eGFR(LOINC) 60 - 999 ML/MINUTE eGFR >60 LAB eGFR(AA)(LOINC) 60 - 999 ML/MINUTE eGFR(AA) >60 Result Comment: ACCORDING TO THE NATIONAL KIDNEY DISEASE EDUCATION PROGRAM(NKDE), A NORMAL eGFR IS A VALUE GREATER THAN OR EQUAL TO 60 ML/MIN/1.73 SQ METERS. CHRONIC KIDNEY DISEASE: <60mL/MIN/1.73 SQ METERS KIDNEY FAILURE: <15mL/MIN/1.73 SQ METERS THIS TEST SHOULD ONLY BE USED FOR PATIENTS 18 YEARS OF AGE AND OLDER. Performed By: #### [id number] #### [facility],[address] [place], [place] [id number] MAINTENANCE COORDINATOR OFFICE VISIT Observed: 02/14/2018 Status: F Source: [facility] REPORT 3:29 AM [facility]'[address] [place] [address] OFFICE VISIT Date of Service: 02/11/18 MR#: [id number] Acct: [id number] Name: KEMI VALDEZ Isabella Rep #: [id number] : 1950 Provider: Isis Gloria MD Age/Sex: 67/F [place] [facility] [place]: Signed Intake Vital Signs02/11/18 Height 5 ft 3 in 02/11/18 Weight: 225 lb 8 oz 02/11/18 Body Mass Index (BMI) 39.9 02/11/18 Blood Pressure 124/77 Intake Visit Reasons: ANNUAL CHECK Chief Complaint: 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 Is patient in pain?: No Allergies erythromycin base Allergy (Mild, Verified 02/11/18 11:04) Other penicillin G Allergy (Mild, Verified 02/11/18 11:04) Unknown dexalant Allergy (Mild, Uncoded 02/11/18 11:04) Other Is last menstrual period known: No Post menopausal: Yes Patient : No : No PFSH Medical History Anxiety and depression (Acute) Arthritis (Acute) Diabetes (Acute) Thyroid disorder (Acute) Hypertension (Chronic) Surgical History H/O dilation and curettage (Acute) History of tonsillectomy (Acute) laser surgery on right leg (Acute) leison removal from face (Acute) Family History Mother Diabetes Heart disease Myocardial infarction Father Myocardial infarction Grandmother CVA (cerebral vascular accident) Social History Smoking Status: Never smoker alcohol intake: current details: social substance use type: does not use caffeine: Yes frequency: 1-2 times per week seatbelt use: always do you feel safe at home: Yes additional social history: - Jourdan (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 s/p stroke 2 years ago doing fairly well. Last PAP: no abnormal in the past History of abnormal PAP: Last mammogram: due History of abnormal mammogram: Colon cancer screening: Other preventative health care screenings: per dr davenport Female Reproductive History Questions: Metorrhagia: No, Sexually active: Yes (minimal) Menopausal Symptoms: Yes hot flashes, No night sweats, No weight change, No mood changes, No difficulty concentrating, No sleep problems, No change in libido Menopausal Treatment: No HRT, No Vaginal Estrogen, No Osphena, No OTC treatments, No prescription non-hormonal treatment ROS Const Constitutional: Reports as per HPI; denies poor appetite, fatigue, increased appetite, weight gain, weight loss or night sweats Cardio Card: Denies chest pain Resp Resp: Denies dyspnea or cough GI GI: Reports as per HPI; denies bloating, abdominal pain, constipation, vomiting or nausea : Reports as per HPI, urinary urgency, urinary incontinence, urinary frequency, other and hot flashes; denies blood in urine, vaginal odor, vaginal itching, vaginal dryness, vaginal discharge, pelvic pain, painful urination, difficulty urinating, prolapse symptoms or nipple discharge Skin Skin/Breast: Denies breast pain, breast skin changes, nipple discharge, breast lump or changing lesions Psych Psych: Denies difficulty concentrating or change in sex drive Exam Const General: cooperative, healthy appearing, comfortable, no acute distress, well developed, well groomed HENIL Head: normal to inspection, normocephalic Ears: hearing grossly normal bilaterally, external ears normal Nose: external nose normal Face and sinus: normal facial exam Neck Neck: normal visual inspection, full ROM, no lymphadenopathy Thyroid: thyroid normal Chest Chest palpation AND inspection: normal inspection of the chest Breast inspection: normal inspection of the breasts, normal inspection of the axillae Breast palpation: normal palpation of the breasts, normal palpation of the axillae, no axillary lymphadenopathy Resp Effort AND Inspection: normal respiratory effort GI Inspection: normal to inspection, non-distended Palpation: no guarding, soft, no hepatosplenomegaly General: bladder normal to palpation External Female Exam: normal external appearance, normal appearance of the urethra, no lesions Urethra: normal appearance of the urethra, normal palpation Speculum Exam - Vagina: normal appearance of the vagina, normal vaginal discharge Speculum Exam - Cervix: normal appearance of the cervix, no cervical discharge, no lesions, nontender Bimanual Exam- Vagina AND Uterus: No cervical tenderness, normal bimanual exam, uterine size normal, bladder normal to palpation, uterine mobility normal, uterine consistency normal, uterus non-tender, no cervical motion tenderness Bimanual Exam- Adnexa, other: normal adnexae, no adnexal masses, adnexae non-tender Skin General: no rashes or lesions noted Neuro General: alert, moves all extremities, no focal motor deficits Extrem General: no pedal edema, normal to inspection Psych Appearance: grossly normal Mental Status: mental status grossly normal Affect: normal affect Speech and Movement: speech and movement normal Attitude: cooperative Assessment AND Plan Problems 1. Encounter for gynecological examination without abnormal finding Z01.419 2. Encounter for screening mammogram for malignant neoplasm of breast Z12.31 Plan Cervical cancer screening: pap hpv Breast cancer screening: mamm other health maintenance examination reviewed and up to date. Encouraged maintenance of a healthy weight and active lifestyle and handout given. Calcium/vitamin D recommendations provided. Annual exam handout including recommendations for good health guidelines and basic screening information given. Problem list up to date, see problem list details for any additional plan information. Follow up in one year for annual health maintenance exam or sooner if needed. Orders Orders: Coding Level of Care Code Off vis,est,prev 65+yrs Diagnoses Encounter for gynecological examination without abnormal finding Z01.419 Gynecological examination findings: abnormal findings ABSENT Encounter for screening mammogram for malignant neoplasm of breast Z12.31 02/14/18 0329 <Electronically signed by Isis Gloria MD> Date Isis Gloria MD Cosigner Signature: Date (if applicable) CC: CBC Collected: 12/26/2017 Status: F Source: [facility] 9:30 AM [facility] REPOSITORY TYPE CODE TESTS RESULT OUT OF RANGE REFERENCE UNITS LAB CBC(LOINC) CBC Result Comment: CBC-COMPLETE BLOOD COUNT LAB WBC(LOINC) 4.5 - 10.8 x 10EE3/UL WBC 6.0 LAB RBC(LOINC) 4.10 - x 10EE6/UL 5.30 RBC Low 3.87 LAB HEMOGLOBIN(LOINC) 12.0 - g/dl 16.0 HEMOGLOBIN 12.5 LAB HEMATOCRIT(LOINC) 34.0 - % 46.0 HEMATOCRIT 36.7 LAB MCV(LOINC) 80 - 99 fl MCV 95 LAB MCH(LOINC) 27 - 33 pg MCH 32 LAB MCHC(LOINC) 32 - 36 X10 3 MCHC 34 LAB RDW/CV(LOINC) 12.0 - % 15.6 RDW/CV 12.4 LAB PLATELET(LOINC) 150 - 450 x10EE3/UL PLATELET 369 LAB MPV(LOINC) 6.6 - 10.5 fl MPV 7.9 Result Comment: AUTOMATED DIFFERENTIAL LAB NEUT %(LOINC) 46.0 - 76.0 % NEUT % 51.4 LAB LYMPH %(LOINC) 20.0 - 45.0 % LYMPH % 32.6 LAB MONOS %(LOINC) 0.0 - 10.0 % MONOS % High 12.1 LAB EO %(LOINC) 0.0 - 7.0 % EO % 2.9 LAB BASO %(LOINC) 0.0 - 2.0 % BASO % 1.0 LAB Lymph #(LOINC) 0.80 - 2.80 x10EE3/U L Lymph # 2.00 LAB Neut #(LOINC) 1.50 - 7.10 x10EE3/U L Neut # 3.10 LAB Dixon #(LOINC) 0.20 - 1.00 x10EE3/U L Dixon # 0.70 LAB EO #(LOINC) 0.00 - 0.50 x10EE3/U L EO # 0.20 LAB Baso #(LOINC) 0.00 - 0.10 x10EE3/U L Baso # 0.10 LAB MANUAL DIFF(LOINC) MANUAL DIFF N/A LAB MORPHOLOGY(INC ) MORPHOLOGY N/A Result Comment: {CD] Performed By: #### [id number] #### [facility],[address] [place] [address] CMP WITH EGFR Collected: 12/26/2017 Status: F Source: [facility] 9:30 AM [facility] REPOSITORY TYPE CODE TESTS RESULT OUT OF RANGE REFERENCE UNITS LAB CMP with eGFR(LOINC) CMP with eGFR Result Comment: COMPREHENSIVE METABOLIC PANEL LAB SODIUM(LOINC) 136 - 145 mmol/l SODIUM 141 LAB POTASSIUM(LOINC) 3.5 - 5.1 mmol/L POTASSIUM 4.2 LAB CHLORIDE(LOINC) 98 - 107 mmol/L CHLORIDE 103 LAB CO2(LOINC) 21.0 - mmol/L 31.0 CO2 High 31.5 LAB GLUCOSE(LOINC) 74 - 106 mg/dl GLUCOSE 90 LAB BUN(LOINC) 6 - 20 mg/dl BUN High 24 LAB CREATININE(LOINC) 0.6 - 1.2 mg/dl CREATININE 0.8 LAB AST/SGOT(LOINC) 13 - 39 U/L AST/SGOT 19 LAB ALK PHOS(LOINC) 38 - 126 U/L ALK PHOS 65 LAB CALCIUM(LOINC) 8.6 - mg/dl 10.2 CALCIUM 9.6 LAB TOTAL 6.4 - 8.3 g/dl PROTEIN(LOINC) TOTAL PROTEIN 7.4 LAB ALBUMIN(LOINC) 3.4 - 4.8 g/dL ALBUMIN 4.3 LAB GLOBULIN(LOINC) 1.5 - 3.8 G/DL GLOBULIN 3.1 LAB A/G RATIO(LOINC) 0.9 - 1.6 A/G RATIO 1.4 LAB TOTAL BILI(LOINC) 0.0 - 1.5 mg/dl TOTAL BILI 0.4 LAB B/C RATIO(LOINC) 0 - 30 ratio B/C RATIO 30 LAB ALT/SGPT(LOINC) 8 - 35 U/L ALT/SGPT 13 LAB ANION GAP(LOINC) 10 - 20 mmol/L ANION GAP 11 LAB AGE(LOINC) years AGE 67 LAB eGFR(LOINC) 60 - 999 ML/MINUTE eGFR >60 LAB eGFR(AA)(LOINC) 60 - 999 ML/MINUTE eGFR(AA) >60 Result Comment: ACCORDING TO THE NATIONAL KIDNEY DISEASE EDUCATION PROGRAM(NKDE), A NORMAL eGFR IS A VALUE GREATER THAN OR EQUAL TO 60 ML/MIN/1.73 SQ METERS. CHRONIC KIDNEY DISEASE: <60mL/MIN/1.73 SQ METERS KIDNEY FAILURE: <15mL/MIN/1.73 SQ METERS THIS TEST SHOULD ONLY BE USED FOR PATIENTS 18 YEARS OF AGE AND OLDER. Performed By: #### [id number] #### Darryl [facility],[address] [place] [address] ALLERGIES ALLERGIES DATE TYPE / CODE NAME / CODE REACTION SEVERITY SOURCE Drug erythromycin Other [place] 8 Allergy/[id number]( base/[id number](R Community SNOMED CT) XNORM) Hospital Repository Drug penicillin Unknown [place] 8 Allergy/353892840( G/[id number](RXNO Community SNOMED CT) RM) Hospital Repository Miscellaneous dexalant Other [place] 8 Allergy/843161991( Community SNOMED CT) Hospital Repository ENCOUNTERS ENCOUNTERS ADMIT/DISCHARGE ACCOUNT ADMITTING ENCOUNTER LOCATION SOURCE NUMBER CLASS 12/18/2018 [id number] Ambulatory Ram[place] 6 [facility] ing:BFHLAB Repository 12/07/2018/ [id number] MARGUERITE, Ambulatory Darryl [place] 9 [facility] Repository 11/07/2018/ [id number] ROBERTOLISSETH SMITH Ambulatory Darryl [place] 8 [facility] Repository 09/30/2018 [id number] Ambulatory [place] 7 [facility] ing:RAD Repository 09/06/2018 [id number] Ambulatory Ramy [facility] 6 [facility] ing:MTLAB Repository 07/08/2018 [id number] Ambulatory [place] 9 [facility] ing:OPBI Repository 05/27/2018/ [id number] ROBERTOLUIS LISSETH Ambulatory Darryl [place] 8 [facility] Repository 04/15/2018 [id number] CARMENZA, Ambulatory Darryl [place] ASTRID [facility] Repository 03/20/2018/ [id number] MARGUERITE, Ambulatory Darryl [place] 8 [facility] Repository 02/20/2018 [id number] Ambulatory BMSBuilding:B [facility] 5 [facility] Repository 02/11/2018/ [id number] Ambulatory BMSBuilding:B [facility] 8 1 [facility] Repository 12/26/2017/ [id number] MARGUERITE, Ambulatory Darryl [place] 8 [facility] Repository PAYERS PAYERS ENCOUNTER GUARANTOR PAYER SUBSCRIBER SOURCE 12/18/2018 JOURDAN [place] Primary Insurance:ROMANA Mccann [id number] MCRPolicy Number: KANDELDOB: [facility] WEAVERQPSXLEffective [id number] County Hospital [address]Siz: Date:2424-88-84VZ BOX Repository 546125YT JUAN CARLOS MAYO (ZH) [phone]: 12/18/2018 Secondary NOT GIVENUNK [place] Insurance:SELF PAY Community INSURANCEPolicy Number: Hospital Effective Repository Date:2018-12-18 12/07/2018 KEMI Mason Primary Insurance:AETNA KEMI SOTODELDOB: MEDICARE KANDELDOB: [facility] [id number] OUTPATIENTChan [facility] [id number] [facility] CR Number: 9 CR Repository [address] [place] [address], MEBQPSXLEffective [address] [place] [address] 68[address]Ias: Date:Plan Name:[facility] [address] () 11/07/2018 KEMI Mason Primary Insurance:AETNA KEMIGUILHERME [place] [facility]LD[facility]: MEDICARE KANDELDOB: [facility] [id number] [facility] [id number] [facility] CR Number: 9 CR Repository [address] [place] [address], MEBQPSXLEffective [address] [place] [address] 14083Ryj: Date:Plan Name:[facility] [address] () 09/30/2018 JOURDAN D[place] Primary Insurance:AETNA KEMI Isabella [facility] [id number] CR MCRPolicy Number: KANDELDOB: [address], BQPSXLEffective [id number] County Hospital [address]Sop: Date:9758-24-08GV BOX Repository 736596VLJUAN CARLOS PARSONS () [address]LI: 09/30/2018 Secondary NOT GIVENUNK [facility] Insurance:SELF PAY Community INSURANCEPolicy Number: Hospital Effective Repository Date:2018-09-30 09/06/2018 Jourdan [place] Primary Insurance:AETNA KEMI Isabella [facility] [id number] CR MCRPolicy Number: KANDELDOB: Community [address] [place] [address], MEBQPSXLEffective [id number] County Hospital [address]Sgq: Date:7849-40-37HN BOX Repository 604964KWJUAN CARLOS SPRINGER () [address]BS: 09/06/2018 Secondary NOT GIVENUNK [facility] Insurance:SELF PAY Community INSURANCEPolicy Number: Hospital Effective Repository Date:2018-09-06 07/08/2018 Jourdan [place] Primary Jourdan Mccann [id number] CR Insurance:AETNAPolicy KandelDOB: [address], Number: [id number] County Hospital [address]Dra: [id number] Repository Date:0193-33-35SJ BOX () [id number] GAEL JUAN CARLOS [phone]: 07/08/2018 Secondary KEMI J [place] Insurance:MEDICARE PART KANDELDOB: [facility] BPolicy Number: [id number] [id number] Repository Date:2018-06-20 07/08/2018 Tertiary Insurance:SELF NOT GIVENUNK [place] PAY INSURANCEPolicy Community Number: Effective Hospital Date:2018-06-20 Repository 05/27/2018 KEMI J Primary Insurance:AETNA JOURDAN [place] Darrylkrista Underwood KANDELDOB: COMMERCIAL KANDELDOB: [facility] [id number] OUTPATIENTPolicy [id number] [facility] CR Number: [address] Repository [address] [place] [address] [id number] [address] [place] [address]Efs: Date:Plan Name:[facility] [id number] () 05/27/2018 Secondary KEMI Isabella Darrylkrista Koluis Insurance:MEDICARE KANDELDOB: [facility] OUTPATIENTPolic [id number] Hospital Number: [address] Repository [id number] [address] [place] [address], Date: [place] [id number] 04/15/2018 KEMI J Primary Insurance:ROMANA SOTODELDOB: COMMERCIAL KANDELDOB: [facility] [id number] RECURRINGPolicy Number: [id number] [facility] CR [id number] 9 CR Repository [address] [place] [address], Date:Plan Name:[address] [address]Mwp: [place] [phone] () 04/15/2018 Secondary KEMI Isabella [place] Insurance:MEDICARE KANDELDOB: [facility] REFERENCE [id number] Hospital LABPolicy Number: 9 CR Repository [id number] [address] [place] [address], [place]: [place] [address] 03/20/2018 KEMI J Primary Insurance:AETNA JOURDAN [place] KANDELDOB: COMMERCIAL KANDELDOB: [facility] [id number] OUTPATIENTPolselect [facility] [id number] Hospital CR Number: [address] Repository [address] [place] [address] [id number] [place] [address]Zmq: Date:Plan Name:[facility] [id number] () 03/20/2018 Secondary KEMI Isabella [place] Insurance:MEDICARE KANDELDOB: [facility] [id number] Hospital Number: [address] Repository [id number], Date: [place] [id number] 02/20/2018 Jourdan Bertin Primary Jourdan Mccann [id number] Insurance:AETNAPolicy KandelDOB: [facility] [address] Number: [id number] [place] [id number] [place]ository [place] [address]Lpd: Date:8637-14-71[address], [place] () [address]NX: 02/20/2018 Secondary KEMI J [place] Insurance:MEDICARE PART KANDELDOB: [facility] A BPolicy Number: [id number] Hospital [id number] Repository Date:2018-02-20 02/20/2018 Tertiary Insurance:SELF NOT GIVENUNK [place] PAY INSURANCEChan [facility] Community Number: Effective Hospital Date:2018-02-20 Repository 02/11/2018 Jourdan D Primary Jourdan D [place] [id number] Insurance:AETNAPolicy [facility]DOB[facility] [address] Number: [id number] [id number]ository [place] [address]Nwk: Date:[id number] [id number] JUAN CARLOS [place] () [address]EC: 02/11/2018 Secondary KEMI Mccann Insurance:MEDICARE PART KANDELDOB: Community A BPolicy Number: [id number] Hospital [id number] Repository Date:2018-01-17 02/11/2018 Tertiary Insurance:SELF NOT GIVENUNK [place] [facility] Number: Effective Hospital Date:2018-01-17 Repository 12/26/2017 KEMI Mason Primary Insurance:ROMANA Underwood KANDELDOB: COMMERCIAL KANDELDOB: [facility] [id number] [facility] Services [id number] [facility] CR Number: [address] Repository [address] [place] [address] [id number] [address] [place] [id number]: Date:Plan Name:[facility] [id number] () 12/26/2017 Secondary KEMI Underwood Insurance:MEDICARE KANDELDOB: [facility] [id number] Hospital Number: [address] Repository [id number] [address] [place] [address], Date: [place] [id number]
== END ==
PROVIDERS: Family Provider Family Medicine; PCP Family Medicine; Visit Provider Family Medicine
DX: E03.9 Hypothyroidism, unspecified (principal); F32.9 Major depressive disorder, single episode, unspecified; D64.9 Anemia, unspecified
CPT/HCPCS: 36415; 82607; 82728; 83540; 84439; 84443; 84481; 85025

== ENCOUNTER → 2019-02-26 12:55 | Outpatient (CLI) | payer MEDICARE, SELFPAY ==
[2019-02-26 14:45] LABS: ALB/GLOB Ratio 1.2 RATIO (0.9-2.4); AST(SGOT) 25 U/L (15-37); Alanine Aminotransfer ALT/SGPT 35 U/L (13-56); Alkaline Phosphatase 88 U/L (45-117); Anion Gap 6 (5-15); BUN 24 mg/dL (7-18); BUN/Creat Ratio 24.1 RATIO (10-20); Calcium,Total 9.2 mg/dL (8.5-10.1); Chloride 103 mmol/L (98-107); EST Glomerular Filtration Rate 59 mL/min (>60); Est Glom Filt Rate - Afr Amer 71 mL/min (>60); Globulin 3.2 g/dL (2.2-4.2); Glucose 87 mg/dL (74-106); Protein, Total 7.2 g/dL (6.4-8.2); Sodium Level 139 mmol/L (136-145)
[2019-02-26 14:46] LABS: Vitamin B12 505 pg/mL (211-911)
[2019-02-26 14:49] LABS: Free T3 2.6 pg/mL (2.18-3.98); Thyroid Stim Hormone (TSH) 1.33 uIU/mL (0.358-3.74)
[2019-02-26 15:46] LABS: Absolute Lymphocyte Count 1.46 X10^3/ul (0.83-4.51); Absolute Neutrophil Count 2.9 X10^3/uL (2.0-7.7); Basophil# 0.03 X10^3/uL; Basophil% 0.6 % (0-1); Eosinophil# 0.15 X10^3/uL; Eosinophils% 2.8 % (0-5); Hemoglobin 11.3 g/dl (12.0-15.0); Lymphocyte # 1.46 X10^3/ul (4.0); Lymphocyte % 27.7 % (19-41); Mean Corp Hgb Conc 32.3 g/gl (32-36); Mean Corpuscular Hgb 31.9 pg (27.0-32.0); Mean Corpuscular Volume 98.9 fL (81-99); Mean Platelet Vol. 10.1 fl (6.2-12.0); Monocyte# 0.75 X10^3/uL; Monocyte% 14.2 % (0-10); Neutrophil # 2.88 X10^3/uL (2.7-7.7); Neutrophil % 54.5 % (47-70); Platelet Count 448 K/mm3 (150-450); Red Blood Count 3.54 M/mm3 (4.2-5.4); White Blood Count 5.3 K/mm3 (4.4-11.0)
[2019-02-26 15:49] LABS: POSITIVE COUNT NO; POSITIVE DIFFERENTIAL NO; POSITIVE MORPHOLOGY NO
== END ==
PROVIDERS: Internal Medicine Rheumatology; Family Provider Family Medicine; PCP Family Medicine; Referring Provider Family Medicine; Visit Provider Family Medicine
DX: E03.9 Hypothyroidism, unspecified (principal); E53.8 Deficiency of other specified B group vitamins; M06.4 Inflammatory polyarthropathy; M15.9 Polyosteoarthritis, unspecified; M17.0 Bilateral primary osteoarthritis of knee; Z79.899 Other long term (current) drug therapy
CPT/HCPCS: 36415; 80053; 82607; 84443; 84481; 85025

== ENCOUNTER → 2019-06-09 | Outpatient (CLI) | payer MEDICARE, SELFPAY ==
[2019-06-09 18:13] LABS: AST(SGOT) 20 U/L (15-37); Alanine Aminotransfer ALT/SGPT 25 U/L (13-56); Albumin, Serum 3.7 g/dL (3.2-5.0); Alkaline Phosphatase 81 U/L (45-117); Anion Gap 5 (5-15); BUN 29 mg/dL (7-18); BUN/Creat Ratio 26.9 RATIO (10-20); Calcium,Total 9.4 mg/dL (8.5-10.1); Chloride 103 mmol/L (98-107); Creatinine, Serum 1.08 mg/dL (0.55-1.02); EST Glomerular Filtration Rate 53 mL/min (>60); Est Glom Filt Rate - Afr Amer 65 mL/min (>60); Globulin 3.6 g/dL (2.2-4.2); Glucose 83 mg/dL (74-106); Protein, Total 7.3 g/dL (6.4-8.2); Sodium Level 138 mmol/L (136-145)
[2019-06-09 18:14] LABS: Absolute Lymphocyte Count 1.64 X10^3/ul (0.83-4.51); Absolute Neutrophil Count 3.6 X10^3/uL (2.0-7.7); Basophil# 0.04 X10^3/uL; Basophil% 0.7 % (0-1); Eosinophil# 0.13 X10^3/uL; Eosinophils% 2.2 % (0-5); Hemoglobin 11.2 g/dl (12.0-15.0); Lymphocyte # 1.64 X10^3/ul (4.0); Lymphocyte % 27.5 % (19-41); Mean Corpuscular Hgb 32.9 pg (27.0-32.0); Mean Corpuscular Volume 102.9 fL (81-99); Mean Platelet Vol. 9.9 fl (6.2-12.0); Monocyte# 0.51 X10^3/uL; Monocyte% 8.5 % (0-10); Neutrophil # 3.64 X10^3/uL (2.7-7.7); Neutrophil % 60.9 % (47-70); Platelet Count 433 K/mm3 (150-450); RBC Distribution Width CV 13.5 % (11.6-14.6); RBC Distribution Width SD 48.7 fl (35.1-43.9)
[2019-06-09 18:29] LABS: POSITIVE COUNT NO; POSITIVE DIFFERENTIAL NO; POSITIVE MORPHOLOGY NO
== END | disposition home or self-care (01) ==
LOC: MTLAB 14:31
PROVIDERS: Family Provider Family Medicine; PCP Family Medicine; Referring Provider Internal Medicine Rheumatology; Visit Provider Internal Medicine Rheumatology
DX: M06.4 Inflammatory polyarthropathy (principal); M17.0 Bilateral primary osteoarthritis of knee; Z79.899 Other long term (current) drug therapy
CPT/HCPCS: 36415; 80053; 85025

== ENCOUNTER → 2019-09-03 14:25 | Outpatient (CLI) | payer MEDICARE, SELFPAY ==
[2019-09-03 15:37] LABS: Absolute Lymphocyte Count 1.72 X10^3/uL (0.83-4.51); Absolute Neutrophil Count 3.5 X10^3/uL (2.0-7.7); Eosinophil# 0.21 X10^3/uL; Eosinophils% 3.4 % (0-5); Hematocrit 34.3 % (37-47); Lymphocyte # 1.72 X10^3/ul (4.0); Lymphocyte % 27.8 % (19-41); Mean Corp Hgb Conc 32.1 g/dL (32-36); Mean Corpuscular Hgb 33.6 pg (27.0-32.0); Mean Corpuscular Volume 104.9 fL (81-99); Mean Platelet Vol. 9.7 fl (6.2-12.0); Monocyte# 0.64 X10^3/uL; Monocyte% 10.4 % (0-10); Neutrophil # 3.53 X10^3/uL (2.7-7.7); Neutrophil % 57.1 % (47-70); Platelet Count 450 K/mm3 (150-450); RBC Distribution Width CV 13.4 % (11.6-14.6); RBC Distribution Width SD 51.6 fl (35.1-43.9); Red Blood Count 3.27 M/mm3 (4.2-5.4); White Blood Count 6.2 K/mm3 (4.4-11.0)
[2019-09-03 15:38] LABS: Basophil# 0.06 X10^3/uL; NRBC Flagged by Analyzer 0 % (0-5)
[2019-09-03 15:50] LABS: ALB/GLOB Ratio 1.1 RATIO (0.9-2.4); AST(SGOT) 21 U/L (15-37); Alanine Aminotransfer ALT/SGPT 31 U/L (13-56); Albumin, Serum 3.8 g/dL (3.2-5.0); Alkaline Phosphatase 86 U/L (45-117); Anion Gap 5 (5-15); BUN 28 mg/dL (7-18); BUN/Creat Ratio 25.9 RATIO (10-20); Calcium,Total 9.1 mg/dL (8.5-10.1); Chloride 105 mmol/L (98-107); Creatinine, Serum 1.08 mg/dL (0.55-1.02); EST Glomerular Filtration Rate 53 mL/min (>60); Est Glom Filt Rate - Afr Amer 65 mL/min (>60); Globulin 3.6 g/dL (2.2-4.2); Glucose 84 mg/dL (74-106); Potassium 3.8 mmol/L (3.5-5.1); Protein, Total 7.4 g/dL (6.4-8.2); Sodium Level 143 mmol/L (136-145)
== END ==
PROVIDERS: Family Provider Family Medicine; PCP Family Medicine; Referring Provider Internal Medicine Rheumatology; Visit Provider Internal Medicine Rheumatology
DX: M06.4 Inflammatory polyarthropathy (principal); Z79.899 Other long term (current) drug therapy; M15.9 Polyosteoarthritis, unspecified; M17.0 Bilateral primary osteoarthritis of knee; M21.40 Flat foot [pes planus] (acquired), unspecified foot; F32.89 Other specified depressive episodes; I10 Essential (primary) hypertension; E11.9 Type 2 diabetes mellitus without complications; E03.9 Hypothyroidism, unspecified; E78.5 Hyperlipidemia, unspecified
CPT/HCPCS: 36415; 80053; 85025

== ENCOUNTER → 2020-04-23 12:42 | Outpatient (CLI) | payer MEDICARE, SELFPAY ==
--- NOTE | 2020-04-23 12:44 | BI_ITS ---
MAMMOGRAPHY - BILATERAL SCREENING REASON FOR EXAM: Female, 70 years old. Routine annual screening examination. PERTINENT HISTORY: Non-contributory. TECHNIQUE: Digital bilateral breast manohar (3D mammographic acquisition) in the CC and MLO projections. 2-D mediolateral oblique (MLO) and craniocaudad (CC) views of both breasts were obtained. CAD: Full Field Digital Mammography with Computer Added Detection was performed. COMPARISON: Comparison is made with prior study July 08, 2018. FINDINGS: Breast Composition: The breasts are almost entirely fatty. There are no dominant masses or suspicious calcifications. Stable small benign-appearing bilateral axillary lymph nodes. No other significant abnormalities are identified. There has been no significant change since the prior study. BI/SCREEN MAMM (CAD) W/MANOHAR BILAT IMPRESSION: Stable bilateral screening mammogram. Yearly follow-up mammogram recommended. (A) ASSESSMENT CATEGORY: BIRADS Category 2: Benign. A letter regarding these results will be sent to the patient by the facility within 30 days. Approximately 10% of breast cancers are not detected by mammography. A normal mammogram should not delay biopsy of a clinically suspicious abnormality. [id number] Electronically Signed: Hans Miranda, at 13:37 EDT , Service support ,
== END ==
PROVIDERS: PCP Nurse Practitioner; Referring Provider Obstetrics & Gynecology; Visit Provider Obstetrics & Gynecology
DX: Z12.31 Encounter for screening mammogram for malignant neoplasm of breast (principal)
CPT/HCPCS: 77063; 77067

== ENCOUNTER 2020-06-29 06:19 | Day surgery (SDC) | payer MEDICARE, SELFPAY ==
[2020-06-29] VITALS (7 sets, daily range): BP systolic 91–123; BP diastolic 61–84; PULSE 89–95; RESP 15–18; TEMP 36.2–36.9; O2SAT 99–100; BMI 37.3
[2020-06-29] MEDS: Lactated Ringers 1,000 ML 100 ML IV (07:12)
[2020-06-29 07:21] LABS: Bedside Glucose 96 mg/dL (70-110)
--- NOTE | 2020-06-29 07:31 | PCM.HP.STD ---
Problem List (1) Screening for intestinal cancer Status: Acute History of Present Illness Date of Admission: 06/29/20 The patient is a 70 year old F who presents for screening colonoscopy today. She has a brother had colon polyps. Her most recent colonoscopy was July 10, 2005. At that time she had hemorrhoids. She denies any abdominal pain bright red blood per rectum or melena. Her health is otherwise been steady Past Medical History Medical History: Medical History (Last Updated 02/11/18 @ 11:05 by Annmarie Leon) Anxiety and depression F41.9, F32.9 Arthritis M19.90 Diabetes E11.9 Thyroid disorder E07.9 Hypertension I10 Allergies erythromycin base Allergy (Mild, Verified 06/29/20 06:53) Other penicillin G Allergy (Mild, Verified 06/29/20 06:53) Unknown dexalant Allergy (Mild, Uncoded 06/29/20 06:53) Other Home Medications: Ambulatory Orders Medication Instructions Recorded aspirin 81 mg tablet,delayed 81 mg PO DAILY 02/20/18 release cholecalciferol (vitamin D3) 50 2,000 unit PO DAILY 02/20/18 mcg (2,000 unit) capsule gemfibrozil 600 mg tablet 600 mg PO BID 02/20/18 hydroxychloroquine 200 mg tablet 200 mg PO BID 02/20/18 levothyroxine 50 mcg tablet 50 mcg PO DAILY 02/20/18 liraglutide 0.6 mg/0.1 mL (18 mg/3 1.8 mg SC DAILY 02/20/18 mL) subcutaneous pen injector lisinopril 10 mg tablet 10 mg PO QDAY 02/20/18 omega-3 fatty acids 1,250 mg 1,250 mg PO QDAY 02/20/18 capsule potassium chloride 20 mEq 20 meq PO QDAY 02/20/18 tablet,extended release pravastatin 80 mg tablet 80 mg PO QHS 02/20/18 prednisone 10 mg tablet 10 mg PO QDAY PRN 02/20/18 venlafaxine 150 mg 150 mg PO DAILY 02/20/18 capsule,extended release 24 hr Famotidine [Pepcid] 40 mg PO QHS 06/28/20 Folic Acid 2 mg PO DAILY 06/28/20 Liothyronine Sodium 5 mcg PO DAILY 06/28/20 Methotrexate Sodium [Methotrexate] 6 mg PO FR 06/28/20 Oxybutynin [Ditropan] 5 mg PO QHS 06/28/20 Surgical History: Surgical History (Last Updated 02/11/18 @ 11:05 by Annmarie Leon) H/O dilation and curettage Z98.890 History of tonsillectomy Z90.89 laser surgery on right leg leison removal from face Smoking Status: Never smoker Tobacco Use: Non-smoker Review of Systems Constitutional: Denies: Anorexia, Fever HEENT: Denies: Difficulty Swallowing Cardiovascular: Denies: Chest Pain Respiratory: Denies: Cough, Shortness of Breath Gastrointestinal: Denies: Abdominal Pain, Melena Endocrine: Denies: Change in Body Habitus VTE Information - Inpt Only VTE Present on Admission: No Patient Problems: Active and Suspected Problems (Last Updated 02/11/18 @ 11:05 by Annmarie Leon) Screening for intestinal cancer (Acute) - Physical Exam Vitals/I&O's: Vital Signs Temp Pulse Resp BP Pulse Ox 98.4 F 89 15 123/72 H 100 06/29/20 06:58 06/29/20 06:58 06/29/20 06:58 06/29/20 06:58 06/29/20 06:58 Oxygen Delivery Method Room Air Weight: 217 lb 2.485 oz Body Mass Index (BMI) 37.3 General: Alert, Oriented x3, Cooperative, No apparent distress HEENT: Atraumatic Oral: Moist Mucosa Neck: Supple Lungs: Clear to auscultation, Normal air movement Cardiovascular: Regular rate, Regular Rhythm Abdomen: Bowel Sounds Present, Soft, Non Tender Extremities: No clubbing, No Calf Tenderness Psych/Mental Status: Normal Affect Laboratory Results 06/29/20 07:08: POC Glucose 96 Current Medications Lactated Ringer's () 1,000 mls @ 100 mls/hr IV .Q10H MARTY Last Admin: 06/29/20 07:12 Dose: 100 mls/hr Documented by: Assessment/Plan All Active Problems (Last Updated 02/11/18 @ 11:05 by Annmarie Leon) Screening for intestinal cancer (Acute) I recommended the patient a screening colonoscopy today with possible biopsy or polypectomy is indicated. She is aware of the technique, benefit, risk, alternatives. She has had an opportunity to ask and have questions answered. She presents via our open access program today. We will proceed as noted. Sae Adhikari M.D., F.A.C.S. Procedure Criteria Procedure Type: Elective COVID Risk Discussion: The surgeon/proceduralist and patient have discussed in detail the risk of exposure to and/or potential harm posed by the COVID-19 virus with having a surgery/procedure at this time versus the risk of delaying the surgery/procedure. It is not possible to know either the risk of delaying the surgery or procedure or chance of getting an infection with perfect accuracy, but a joint decision was made between the patient and the surgeon/proceduralist to proceed at this time with the scheduled surgery/procedure as indicated on the consent form.
--- NOTE | 2020-06-29 08:03 | OP.CCLET_ITS ---
06/29/2020 Deloris Ellington NP [address] [place] [address] Re : Colonoscopy procedure for Marie Lopez Dear Ms. Ellington This procedure was performed on Monday, June 29, 2020. My impressions and recommendations are as follows: Impressions : - Non-thrombosed external hemorrhoids, non-thrombosed internal hemorrhoids and internal hemorrhoids that prolapse with straining, but spontaneously regress to the resting position (Grade II) found on digital rectal exam. - Diverticulosis in the sigmoid colon. - Tortuous colon. - No specimens collected. Recommendations : - Discharge patient to home. - Resume previous diet. - Continue present medications. - Repeat colonoscopy in 10 years for screening purposes. My findings are described in the full procedure note, which is enclosed. If I can be of further assistance, please feel free to contact me at Doctor phone number(s): Work: . Sincerely, Sae Adhikari MD 06/29/2020 8:02:51 AM This report has been signed electronically.
--- NOTE | 2020-06-29 08:03 | OP.COLON_ITS ---
Patient Name: Marie Lopez Procedure Date: 06/29/2020 7:31 AM Date of : 1950 Age: 70 Procedure: Colonoscopy Indications: Screening for colorectal malignant neoplasm Providers: Sae Adhikari MD Referring MD: Deloris Ellington NP Medicines: Midazolam 3.5 mg IV, Meperidine 100 mg IV Patient Profile: Last Colonoscopy: June 2005. Complications: No immediate complications. Procedure: Pre-Anesthesia Assessment: - Prior to the procedure, a History and Physical was performed, and patient medications and allergies were reviewed. The patient's tolerance of previous anesthesia was also reviewed. The risks and benefits of the procedure and the sedation options and risks were discussed with the patient. All questions were answered, and informed consent was obtained. Prior Anticoagulants: The patient has taken aspirin. ASA Grade Assessment: II - A patient with mild systemic disease. After reviewing the risks and benefits, the patient was deemed in satisfactory condition to undergo the procedure. After I obtained informed consent, the scope was passed under direct vision. Throughout the procedure, the patient's blood pressure, pulse, and oxygen saturations were monitored continuously. The colonoscope was introduced through the anus and advanced to the cecum, identified by appendiceal orifice and ileocecal valve. The colonoscopy was performed without difficulty. The patient tolerated the procedure well. The quality of the bowel preparation was good. The ileocecal valve and the appendiceal orifice were photographed. Moderate Sedation: Moderate (conscious) sedation was personally administered by the endoscopist. The following parameters were monitored: oxygen saturation, heart rate, blood pressure, and response to care. Total physician intraservice time was 15 minutes. Scope In: 7:40:01 AM Scope Withdrawal Time 0 hours 6 minutes 43 seconds Scope Out: 7:53:36 AM Total Procedure Duration Time 0 hours 13 minutes 35 seconds Findings: The digital rectal exam findings include non-thrombosed external hemorrhoids, non-thrombosed internal hemorrhoids and internal hemorrhoids that prolapse with straining, but spontaneously regress to the resting position (Grade II). Scattered diverticula were found in the sigmoid colon. The colon (entire examined portion) was mildly tortuous. Impression: - Non-thrombosed external hemorrhoids, non-thrombosed internal hemorrhoids and internal hemorrhoids that prolapse with straining, but spontaneously regress to the resting position (Grade II) found on digital rectal exam. - Diverticulosis in the sigmoid colon. - Tortuous colon. - No specimens collected. Recommendation: - Discharge patient to home. - Resume previous diet. - Continue present medications. - Repeat colonoscopy in 10 years for screening purposes. Procedure Code(s): --- Professional --- 85547, Colonoscopy, flexible; diagnostic, including collection of specimen(s) by brushing or washing, when performed (separate procedure) 23653, 59, Moderate sedation services provided by the same physician or other qualified health clinical care coordinator performing the diagnostic or therapeutic service that the sedation supports, requiring the presence of an independent trained observer to assist in the monitoring of the patient's level of consciousness and physiological status; initial 15 minutes of intraservice time, patient age 5 years or older Diagnosis Code(s): --- Professional --- Z12.11, Encounter for screening for malignant neoplasm of colon K64.1, Second degree hemorrhoids K64.4, Residual hemorrhoidal skin tags K57.30, Diverticulosis of large intestine without perforation or abscess without bleeding Q43.8, Other specified congenital malformations of intestine CPT copyright 2017 [employer]. All rights reserved. The codes documented in this report are preliminary and upon seo professional review may be revised to meet current compliance requirements. Sae Adhikari MD 06/29/2020 8:02:51 AM This report has been signed electronically. Number of Addenda: 0 Note Initiated On: 06/29/2020 7:31 AM
== END 2020-06-29 08:43 | disposition home or self-care (01) ==
LOC: EN 06:22 → AC 06:24
PROVIDERS: PCP Family Medicine; Referring Provider Family Medicine; Visit Provider Surgery
PROC: 0DJD8ZZ Inspection of Lower Intestinal Tract, Via Natural or Artificial Opening Endoscopic (ICD-10-PCS; CPT 45378; principal; 2020-06-29 07:25)
DX: Z12.11 Encounter for screening for malignant neoplasm of colon (principal); Z11.59 Encounter for screening for other viral diseases; I10 Essential (primary) hypertension; E11.9 Type 2 diabetes mellitus without complications; E07.9 Disorder of thyroid, unspecified; F41.9 Anxiety disorder, unspecified; F32.9 Major depressive disorder, single episode, unspecified; M19.90 Unspecified osteoarthritis, unspecified site; Z79.899 Other long term (current) drug therapy; Z79.82 Long term (current) use of aspirin; K57.30 Diverticulosis of large intestine without perforation or abscess without bleeding; K64.4 Residual hemorrhoidal skin tags; K64.1 Second degree hemorrhoids; Q43.8 Other specified congenital malformations of intestine
CPT/HCPCS: G0121; 82962; 87635; 94799; J7120; U0003

== ENCOUNTER → 2020-07-08 13:40 | Outpatient (CLI) | payer MEDICARE, SELFPAY ==
[2020-07-06 13:52] VITALS: BMI 37.3
--- NOTE | 2020-07-08 13:44 | VDLE_ITS ---
Reason For Study: Pain, edema Procedure LEFT Exam performed in department. GSV is normal. A preliminary report was called and/or faxed CFV is compressible, spontaneous, phasic, to Issac. competent, and demonstrates normal augmentation. FV is compressible, spontaneous, phasic, competent and demonstrates normal augmentation. POP V is compressible, spontaneous, phasic, competent and demonstrates normal augmentation. T/P Trunk is compressible. PTV is compressible. LT PerV is compressible. Interpretation Summary Deep veins of the left lower extremity are patent and compressible segmentally. There is no evidence of left lower extremity deep vein thrombosis. Valvular competence appears intact within the proximal deep venous system on the left . The left great saphenous vein appears patent and compressible segmentally. Ordering Physician: Lisseth Davenport Referring Physician: Lisseth Davenport Performed By: Nancy Sprague RVT
== END ==
PROVIDERS: PCP Family Medicine; Referring Provider Family Medicine; Visit Provider Family Medicine
DX: M79.662 Pain in left lower leg (principal); R60.0 Localized edema; W19.XXXA Unspecified fall, initial encounter
CPT/HCPCS: 93971

== ENCOUNTER → 2021-03-01 13:42 | Outpatient (CLI) | payer MEDICARE, SELFPAY ==
[2020-07-06 13:52] VITALS: BMI 37.3
--- NOTE | 2021-03-01 13:56 | BD_ITS ---
STUDY: DUAL ENERGY X-RAY ABSORPTIOMETRY / DXA REASON FOR EXAM: Female, 70 years old. Postmenopausal TECHNIQUE: Bone Mineral Density (BMD) measurements of lumbar spine and bilateral hips were obtained. COMPARISON: None. FINDINGS: Lumbar Spine (L1-L4): g/cm2 (1.123) / T-score (-0.6) / Z-score (1.0) Findings are suggestive of normal bone density with a low fracture risk. Left Femur Total: g/cm2 (0.921) / T-score (-0.7) / Z-score (0.8) Left Femoral Neck: g/cm2 (0.847) / T-score (-1.4) / Z-score (0.4) Right Femur Total: g/cm2 (0.916) / T-score (-0.7) / Z-score (0.8) Right Femoral Neck: g/cm2 (0.880) / T-score (-1.1) / Z-score (0.6) BD/Dexa Bone Density Study IMPRESSION: The patient is considered osteopenic as outlined below according to World [employer] Organization (WHO) criteria with a low fracture risk. Reference Information: The T-score is the number of standard deviations above or below the standard which is normal for young adults at their peak bone mineral density. The World Health Organization (WHO) interprets the T-scores as follows: Above -1 Normal bone density Between -1 and -2.5 Osteopenia Equal to / or below -2.5 Osteoporosis As a practical clinical guideline, osteopenia may be graded as follows: Mild -1 through -1.5 Moderate -1.6 through -2.0 Severe -2.1 through -2.4 The Z-score is the number of standard deviations above or below age-matched controls. A Z-score of less than -1.5 would be considered abnormal. References: 1. NIH Osteoporosis and Related Bone Diseases www osteo.org 2. International Society for Clinical Densitometry www iscd.org 3. National Osteoporosis Foundation www nof.org Electronically Signed: Hans Miranda MD at 13:42 EDT , Service support ,
== END ==
PROVIDERS: PCP Family Medicine; Referring Provider Family Medicine; Visit Provider Family Medicine
DX: Z78.0 Asymptomatic menopausal state (principal); M81.0 Age-related osteoporosis without current pathological fracture
CPT/HCPCS: 77080

== ENCOUNTER → 2021-06-21 15:05 | Outpatient (CLI) | payer MEDICARE, SELFPAY ==
[2020-07-06 13:52] VITALS: BMI 37.3
--- NOTE | 2021-06-21 15:08 | BI_ITS ---
MAMMOGRAPHY - BILATERAL SCREENING REASON FOR EXAM: Female, 71 years old. Routine annual screening examination. PERTINENT HISTORY: Non-contributory. TECHNIQUE: Digital bilateral breast manohar (3D mammographic acquisition) in the CC and MLO projections. 2-D mediolateral oblique (MLO) and craniocaudad (CC) views of both breasts were obtained. CAD: Full Field Digital Mammography with Computer Added Detection was performed. COMPARISON: Comparison is made with prior study dated 04/23/2020 and 07/08/2018. FINDINGS: Breast Composition: The breasts are almost entirely fatty. There are no dominant masses or suspicious calcifications. No other significant abnormalities are identified. There has been no significant change since the prior study. BI/SCRN MAMM (CAD)W/MANOHAR BILAT IMPRESSION: Stable bilateral screening mammogram. Yearly follow-up mammogram recommended. (A) ASSESSMENT CATEGORY: BIRADS Category 1: Negative. A letter regarding these results will be sent to the patient by the facility within 30 days. Approximately 10% of breast cancers are not detected by mammography. A normal mammogram should not delay biopsy of a clinically suspicious abnormality. [id number] Electronically Signed: Hans Miranda MD at 15:56 EDT , Service support ,
== END ==
PROVIDERS: PCP Family Medicine; Referring Provider Obstetrics & Gynecology; Visit Provider Obstetrics & Gynecology
DX: Z12.31 Encounter for screening mammogram for malignant neoplasm of breast (principal)
CPT/HCPCS: 77063; 77067

== ENCOUNTER → 2021-07-27 08:56 | Outpatient (CLI) | payer MEDICARE, SELFPAY ==
--- NOTE | 2021-07-27 09:01 | RAD_ITS ---
INDICATION: FALL EXAMINATION/TECHNIQUE: X-RAY - RIGHT XR Hip Unilateral with Pelvis when performed; 2-3 Views 3 VIEWS COMPARISON: 09/11/2016. FINDINGS: SOFT TISSUES: No soft tissue swelling or gas. No radiopaque foreign body. BONES/JOINTS: There is severe narrowing of the right hip joint space, mild irregularity visualized along the articular surface with subchondral lucency/cyst seen, these demonstrate progression in comparison to the prior study. No evidence of cortical irregularity and lucency to suggest a fracture. No evidence of dislocation is seen. Degenerative changes also visualized in the lower lumbar spine. RAD/HIP, UNI W/ Pelvis 2-3 Views IMPRESSION: Degenerative changes with severe narrowing of the right hip joint space, no acute osseous abnormality is seen. Electronically Signed: Kirk Metz MD at 13:32 EDT Tel , Service support ,
== END ==
PROVIDERS: PCP Family Medicine; Referring Provider Anesthesiology Pain Medicine; Visit Provider Anesthesiology Pain Medicine
DX: M25.559 Pain in unspecified hip (principal)
CPT/HCPCS: 73502

== ENCOUNTER → 2021-11-03 13:57 | Outpatient (CLI) | payer MEDICARE, SELFPAY ==
[2021-11-03 15:03] LABS: Absolute Lymphocyte Count 1.96 X10^3/uL (0.83-4.51); Absolute Neutrophil Count 3.5 X10^3/uL (2.0-7.7); Basophil# 0.07 X10^3/uL; Basophil% 1.1 % (0-1); Eosinophil# 0.22 X10^3/uL; Eosinophils% 3.3 % (0-5); Lymphocyte # 1.96 X10^3/ul (0.83-4.51); Lymphocyte % 29.5 % (19-41); Mean Corp Hgb Conc 32.4 g/dL (32-36); Mean Corpuscular Hgb 31.8 pg (27.0-32.0); Mean Corpuscular Volume 98.1 fL (81-99); Mean Platelet Vol. 9.5 fl (6.2-12.0); Monocyte# 0.82 X10^3/uL; Monocyte% 12.3 % (0-10); NRBC Flagged by Analyzer 0 % (0-5); Neutrophil # 3.53 X10^3/uL (2.7-7.7); Neutrophil % 53.2 % (47-70); Platelet Count 364 K/mm3 (150-450); RBC Distribution Width CV 12.6 % (11.6-14.6); RBC Distribution Width SD 45.5 fl (35.1-43.9); Red Blood Count 3.77 M/mm3 (4.2-5.4); White Blood Count 6.6 K/mm3 (4.4-11.0)
[2021-11-03 15:28] LABS: ALB/GLOB Ratio 0.7 RATIO (0.9-2.4); AST(SGOT) 26 U/L (15-37); Alanine Aminotransfer ALT/SGPT 39 U/L (13-56); Albumin, Serum 3.2 g/dL (3.2-5.0); Alkaline Phosphatase 129 U/L (45-117); Anion Gap 6 (5-15); BUN 16 mg/dL (7-18); BUN/Creat Ratio 19.4 RATIO (10-20); Calcium,Total 9.2 mg/dL (8.5-10.1); Chloride 103 mmol/L (98-107); Creatinine, Serum 0.82 mg/dL (0.55-1.02); EST Glomerular Filtration Rate 73 mL/min (>60); Est Glom Filt Rate - Afr Amer 88 mL/min (>60); Globulin 4.3 g/dL (2.2-4.2); Glucose 92 mg/dL (74-106); Potassium 3.7 mmol/L (3.5-5.1); Protein, Total 7.5 g/dL (6.4-8.2); Sodium Level 140 mmol/L (136-145)
== END ==
PROVIDERS: PCP Family Medicine; Referring Provider Internal Medicine Rheumatology; Visit Provider Internal Medicine Rheumatology
DX: M06.4 Inflammatory polyarthropathy (principal); M19.041 Primary osteoarthritis, right hand; M18.12 Unilateral primary osteoarthritis of first carpometacarpal joint, left hand; M17.0 Bilateral primary osteoarthritis of knee; M47.897 Other spondylosis, lumbosacral region; M21.40 Flat foot [pes planus] (acquired), unspecified foot; F32.89 Other specified depressive episodes; I10 Essential (primary) hypertension; E11.9 Type 2 diabetes mellitus without complications; E03.9 Hypothyroidism, unspecified; E78.5 Hyperlipidemia, unspecified; Z79.899 Other long term (current) drug therapy
CPT/HCPCS: 36415; 80053; 85025

== ENCOUNTER 2021-12-15 12:29 | Outpatient (CLI) | payer MEDICARE, SELFPAY ==
--- NOTE | 2021-12-15 12:35 | MRI_ITS ---
STUDY: MRI LUMBAR SPINE WITHOUT CONTRAST REASON FOR EXAM: Female, 71 years old. BACK PAIN LEG PAIN TECHNIQUE: Standardized fat and water weighted pulse sequences were obtained in the sagittal and axial planes. COMPARISON: None FINDINGS: T12-L1: Normal endplates. Normal disc height, hydration and morphology. Normal bilateral facet joints. Normal central canal and bilateral lateral recesses. Normal bilateral intervertebral neural foramina. Normal lumbar lordosis. There is no substantial scoliosis. Normal conus medullaris that terminates at the T12/L1. L1-2: Mild bilateral facet hypertrophy and ligament flavum hypertrophy. 2 mm retrolisthesis of L1 on L2 with a mild bilobed disc protrusion produces mild spinal stenosis and mild bilateral neural foraminal stenosis. L2-3: Moderate bilateral facet hypertrophy and ligament flavum hypertrophy. 2 mm retrolisthesis of L2 on L3 with a mild bilobed disc protrusion produces moderate spinal stenosis, moderate bilateral lateral recess stenosis with abutment of the L3 nerve roots bilaterally and mild bilateral neural foraminal stenosis. L3-4: Mild bilateral facet hypertrophy and ligament flavum hypertrophy. Mild broad-based protrusion with mild spinal stenosis and mild bilateral neural foraminal stenosis. L4-5: Moderate bilateral facet hypertrophy and ligamentum flavum hypertrophy. 5 mm anterolisthesis of L4 on L5 with a mild broad-based disc protrusion produces mild spinal stenosis and moderate bilateral neural foraminal stenosis. L5-S1: Mild bilateral facet hypertrophy. 2 mm retrolisthesis of L5 on S1 with a mild broad disc protrusion produces mild spinal stenosis and mild bilateral neural foraminal stenosis. Normal visualized sacral ala. Normal visualized paraspinous soft tissue structures. MRI/Spine Lumbar (Routine) IMPRESSION: Multilevel degenerative changes, as described above. Electronically Signed: Jourdan Rodriguez MD at 12:24 EST Tel , Service support ,
== END 2021-12-15 23:59 | disposition short-term general hospital (02) ==
PROVIDERS: PCP Family Medicine; Referring Provider Anesthesiology Pain Medicine; Visit Provider Anesthesiology Pain Medicine
DX: M54.16 Radiculopathy, lumbar region (principal)
CPT/HCPCS: 72148

== ENCOUNTER → 2022-08-14 | Outpatient (CLI) | payer MEDICARE, SELFPAY ==
--- NOTE | 2022-08-14 12:48 | BI_ITS ---
MAMMOGRAPHY - BILATERAL SCREENING 3-D TOMOSYNTHESIS REASON FOR EXAM: Female, 72 years old. breast cancer screening PERTINENT HISTORY: No significant family history. TECHNIQUE: 2-D mammograms and 3-D Tomosynthesis of the breast (s) were performed. CAD was performed. COMPARISON: 06/21/2021 FINDINGS: The breast composition is composed of scattered fibroglandular density. Scattered benign calcifications are seen. No dense spiculated masses or suspicious microcalcifications are identified. No architectural distortion is identified. There is no skin thickening or retraction. There has been no significant change since the prior study. BI/SCRN MAMM (CAD)W/MANOHAR BILAT IMPRESSION: No mammographic signs of malignancy. Routine yearly mammograms recommended. ASSESSMENT CATEGORY: BIRADS Category 1: Negative. A letter regarding these results will be sent to the patient by the facility within 30 days. FOLLOW UP RECOMMENDATION: Yearly follow up mammogram recommended. (A) Approximately 10% of breast cancers are not detected by mammography. A normal mammogram should not delay biopsy of a clinically suspicious abnormality. Electronically Signed: Jourdan Rodriguez MD at 13:27 EDT ,
== END | disposition home or self-care (01) ==
LOC: OPBI 12:47
PROVIDERS: PCP Family Medicine; Visit Provider Obstetrics & Gynecology
DX: Z12.31 Encounter for screening mammogram for malignant neoplasm of breast (principal)
CPT/HCPCS: 77063; 77067

== ENCOUNTER → 2023-08-23 | Outpatient (CLI) | payer MEDICARE, SELFPAY ==
--- NOTE | 2023-08-23 11:55 | BI_ITS ---
MAMMOGRAPHY - BILATERAL SCREENING REASON FOR EXAM: Female, 73 years old. Routine annual screening examination. PERTINENT HISTORY: Non-contributory. TECHNIQUE: Digital bilateral breast manohar (3D mammographic acquisition) in the CC and MLO projections. 2-D mediolateral oblique (MLO) and craniocaudad (CC) views of both breasts were obtained. CAD: Full Field Digital Mammography with Computer Added Detection was performed. COMPARISON: Comparison is made with prior study dated August 14, 2022 and June 21, 2021. FINDINGS: Breast Composition: The breasts are almost entirely fatty. There are no dominant masses or suspicious calcifications. No other significant abnormalities are identified. There has been no significant change since the prior study. BI/SCRN MAMM (CAD)W/MANOHAR BILAT IMPRESSION: Stable bilateral screening mammogram. Yearly follow-up mammogram recommended. (A) ASSESSMENT CATEGORY: BIRADS Category 1: Negative. A letter regarding these results will be sent to the patient by the facility within 30 days. Approximately 10% of breast cancers are not detected by mammography. A normal mammogram should not delay biopsy of a clinically suspicious abnormality. [id number] Electronically Signed: Hans Miranda MD at 13:00 EDT ,
== END | disposition home or self-care (01) ==
LOC: OPBI 11:53
PROVIDERS: PCP Family Medicine; Referring Provider Obstetrics & Gynecology; Visit Provider Obstetrics & Gynecology
DX: Z12.31 Encounter for screening mammogram for malignant neoplasm of breast (principal)
CPT/HCPCS: 77063; 77067

== ENCOUNTER → 2023-11-08 | Outpatient (CLI) | payer MEDICARE, SELFPAY ==
[2023-11-14 22:52] LABS: HPV Reflexed? NOT INDICATED
== END | disposition home or self-care (01) ==
PROVIDERS: PCP Family Medicine; Visit Provider Obstetrics & Gynecology
DX: Z12.4 Encounter for screening for malignant neoplasm of cervix (principal); D84.9 Immunodeficiency, unspecified
CPT/HCPCS: 88175; G0145

== ENCOUNTER → 2024-09-16 | Outpatient (CLI) | payer MEDICARE, SELFPAY ==
--- NOTE | 2024-09-16 12:25 | BI_ITS ---
MAMMOGRAPHY - BILATERAL SCREENING REASON FOR EXAM: Female, 74 years old. Routine annual screening examination. PERTINENT HISTORY: Non-contributory. TECHNIQUE: Digital bilateral breast manohar (3D mammographic acquisition) in the CC and MLO projections. 2-D mediolateral oblique (MLO) and craniocaudad (CC) views of both breasts were obtained. CAD: Full Field Digital Mammography with Computer Added Detection was performed. COMPARISON: Comparison is made with prior study dated August 23, 2023 and August 14, 2022. FINDINGS: Breast Composition: The breasts are almost entirely fatty. There are no dominant masses or suspicious calcifications. No other significant abnormalities are identified. There has been no significant change since the prior study. BI/SCRN MAMM (CAD)W/MANOHAR BILAT IMPRESSION: Stable bilateral screening mammogram. Yearly follow-up mammogram recommended. (A) ASSESSMENT CATEGORY: BIRADS Category 1: Negative. A letter regarding these results will be sent to the patient by the facility within 30 days. Approximately 10% of breast cancers are not detected by mammography. A normal mammogram should not delay biopsy of a clinically suspicious abnormality. [id number] Electronically Signed: Hans Miranda MD at 13:22 EDT ,
== END | disposition home or self-care (01) ==
LOC: OPBI 12:25
PROVIDERS: PCP Family Medicine; Referring Provider Nurse Practitioner Women's Health; Visit Provider Nurse Practitioner Women's Health
DX: Z12.31 Encounter for screening mammogram for malignant neoplasm of breast (principal)
CPT/HCPCS: 77063; 77067

== ENCOUNTER → 2024-11-10 | Outpatient (CLI) | payer MEDICARE, SELFPAY ==
[2024-11-18 14:07] LABS: HPV APTIMA, High Risk Negative (Negative)
== END | disposition home or self-care (01) ==
PROVIDERS: PCP Family Medicine; Referring Provider Nurse Practitioner Women's Health; Visit Provider Nurse Practitioner Women's Health
DX: D84.9 Immunodeficiency, unspecified (principal); Z12.4 Encounter for screening for malignant neoplasm of cervix
CPT/HCPCS: 87624; 88175; G0145

== ENCOUNTER → 2025-07-03 | Outpatient (CLI) | payer MEDICARE, SELFPAY ==
[2025-07-03 16:55] LABS: Creatinine, Urine (random) 19.50 mg/dL (28.00-217.00); Microalbumin,Random Urine < 12.0 mg/L (<20 mg/L)
== END | disposition home or self-care (01) ==
LOC: LABSPEC 15:28
PROVIDERS: PCP Family Medicine; Referring Provider Family Medicine; Visit Provider Family Medicine
DX: E11.9 Type 2 diabetes mellitus without complications (principal)
CPT/HCPCS: 82043; 82570

== ENCOUNTER → 2025-09-22 | Outpatient (CLI) | payer MEDICARE, SELFPAY ==
--- NOTE | 2025-09-22 10:45 | BI_ITS ---
EXAM: SCRN MAMM (CAD)W/MANOHAR BILAT DATE: 09/22/2025 CLINICAL HISTORY: F, Age 75 y/o , SCREEN FOR BREAST CANCER No family history. TECHNIQUE: Procedure Code: [id number] Modality: MG Procedure: SCRN MAMM (CAD)W/MANOHAR BILAT COMPARISON: Prior exam(s) dated September 16, 2024.. FINDINGS: TISSUE DENSITY: The breasts are almost entirely fatty. Bilateral Breast Mammographic Findings: No significant masses, calcifications or other abnormalities are identified. No suspicious masses, areas of developing architectural distortion, or suspicious calcifications. There has been no significant interval change. BI/SCRN MAMM (CAD)W/MANOHAR BILAT IMPRESSION: Stable bilateral screening mammogram. OVERALL FINAL ASSESSMENT BI-RADS 1: NEGATIVE. RECOMMENDATION: Routine annual follow-up in 1 Year Additional Recommendation none A letter with findings and recommendations will be mailed to the patient. Reading Location: [facility]
== END | disposition home or self-care (01) ==
LOC: OPBI 11:34
PROVIDERS: PCP Family Medicine; Referring Provider Obstetrics & Gynecology; Visit Provider Obstetrics & Gynecology
DX: Z12.31 Encounter for screening mammogram for malignant neoplasm of breast (principal)
CPT/HCPCS: 77063; 77067